=== PATIENT | female | born 1945 | race African-American/Black ===

== ENCOUNTER 2018-09-15 08:38 | Day surgery (SDC) | payer OTHER ==
--- OUTSIDE RECORDS SUMMARY | 2018-09-15 08:43 | XMS REPORT ---
:1945 Author Organization [employer] Care Team Providers Name Role Phone Jesus Hernandez Provider Role Unavailable Allergies, Adverse Reactions, Alerts Substance Reaction Event Type Steroids Info Not Available Drug Allergy Penicllin Info Not Available Drug Allergy Problems Problem Type Condition Code Onset Dates Condition Status Assessment Primary osteoarthritis of right M17.11 Active knee Problem Primary osteoarthritis of right M17.11 Active knee Assessment Pain, joint, knee, right M25.561 Active Medications Medication Code Code Instructions Start End Status Dosage System Date Date Xanax [facility] 55211246100 2 MG Orally Active 1 tablet Twice a day Aggrenox [facility] 18626515830 25-200 MG Active 1 capsule Orally Twice a day Melatonin [facility] 96426641033 5 MG Orally Active 1 tablet Once a day at bedtime as needed with food Metoprolol [facility] 21231432919 50 MG Orally Active as Succinate directed Fluticasone [facility] [address]-45 50 MCG/BLIST Active 1 puff Propionate Inhalation (Inhal) Twice a day ProAir HFA [facility] 94757544413 108 (90 Base) Active 2 puffs as MCG/ACT needed Inhalation every 6 hrs Aripiprazole [facility] 20863166153 2 MG Orally Active 1 tablet Once a day Lexapro [facility] 11753852411 20 MG Orally Active 0.5 tablet Once a day Namzaric [facility] 28559790403 28 mg/10 mg Active 1 Orally daily [place] [facility] 68633987268 7.5-325 MG Active 1 tablet Orally every 6 as needed hrs Losartan ND 50260350457 50 MG Orally Active 1 tablet Potassium Once a day Results No Known Results Summary Purpose [employer]ClinicalWorks Submission
--- OUTSIDE RECORDS SUMMARY | 2018-09-15 08:43 | XMS REPORT ---
:1945 Author Organization [employer] Care Team Providers Name Role Phone Jesus Hernandez Provider Role Unavailable Allergies, Adverse Reactions, Alerts Substance Reaction Event Type Steroids Info Not Available Drug Allergy Penicllin Info Not Available Drug Allergy Problems Problem Type Condition Code Onset Dates Condition Status Assessment Primary osteoarthritis of right knee M17.11 Active Problem Primary osteoarthritis of right knee M17.11 Active Medications Medication Code Code Instructions Start End Status Dosage System Date Date Aripiprazole [facility] 82440222240 2 MG Orally Active 1 tablet Once a day Melatonin ND 47076512409 5 MG Orally Active 1 tablet Once a day at bedtime as needed with food Xanax [facility] 72526425096 2 MG Orally Active 1 tablet Twice a day ProAir HFA [facility] 45236696552 108 (90 Base) Active 2 puffs as MCG/ACT needed Inhalation every [address] [place] [facility] 70204190671 7.5-325 MG Active 1 tablet Orally every 6 as needed hrs Namzaric [facility] 50984150028 28 mg/10 mg Active [address] [facility] 56098340788 25-200 MG Active 1 capsule Orally Twice a day Losartan [facility] 48843276440 50 MG Orally Active 1 tablet Potassium Once a day Fluticasone [facility] [address]-26 50 MCG/BLIST Active 1 puff Propionate Inhalation (Inhal) Twice a day Lexapro [facility] 71836546661 20 MG Orally Active 0.5 tablet Once a day Metoprolol ND 98831143228 50 MG Orally Active as Succinate directed Results No Known Results Summary Purpose eClinicalWorks Submission
--- OUTSIDE RECORDS SUMMARY | 2018-09-15 08:44 | XMS REPORT ---
[...] Start End Status Dosage System Date Date Losartan [facility] 36303637529 50 MG Orally Active 1 tablet Potassium Once a day Xanax [facility] 83732085696 2 MG Orally Active 1 tablet Twice a day Metoprolol [facility] 84148800981 50 MG Orally Active as Succinate directed Aripiprazole [facility] 50789857093 2 MG Orally Active 1 tablet Once a day ProAir HFA [facility] 43537174682 108 (90 Base) Active 2 puffs as MCG/ACT needed Inhalation every 6 hrs Fluticasone [facility] [address]-98 50 MCG/BLIST Active 1 puff Propionate Inhalation (Inhal) Twice a day Namzaric [facility] 10836157320 28 mg/10 mg Active 1 Orally daily Melatonin [facility] 75327427412 5 MG Orally Active 1 tablet Once a day at bedtime as needed with food Lexapro [facility] 62327633393 20 MG Orally Active 0.5 tablet Once a day Ingram [facility] 91411142316 7.5-325 MG Active 1 tablet Orally every 6 as needed hrs Aggrenox [facility] 95095185875 25-200 MG Active 1 capsule Orally Twice a day Results No Known Results Summary Purpose eClinicalWorks Submission
--- OUTSIDE RECORDS SUMMARY | 2018-09-15 08:44 | XMS REPORT ---
[...] Start End Status Dosage System Date Date Fluticasone [facility] [address]-78 50 MCG/BLIST Active 1 puff Propionate Inhalation (Inhal) Twice a day Aggrenox [facility] 52025607686 25-200 MG Active 1 capsule Orally Twice a day Metoprolol [facility] 09471265918 50 MG Orally Active as Succinate directed Losartan [facility] 69164818107 50 MG Orally Active 1 tablet Potassium Once a day Xanax [facility] 89113284535 2 MG Orally Active 1 tablet Twice a day Melatonin ND 29222503737 5 MG Orally Active 1 tablet Once a day at bedtime as needed with food Lexapro [facility] 45013423090 20 MG Orally Active 0.5 tablet Once a day Aripiprazole [facility] 58562176399 2 MG Orally Active 1 tablet Once a day ProAir HFA [facility] 93269179032 108 (90 Base) Active 2 puffs as MCG/ACT needed Inhalation every 6 hrs Namzaric [facility] 46251602301 28 mg/10 mg Active 1 Orally daily [place] [facility] 64413754291 7.5-325 MG Active 1 tablet Orally every 6 as needed hrs Results No Known Results Summary Purpose eClinicalWorks Submission
[2018-09-15 08:56] LABS: Absolute Lymphocytes (CBC) 1.6 K/uL (0.7-4.9); Absolute Monocytes 0.5 K/uL (0.1-1.3); Absolute Neutrophil 5.4 K/uL (1.8-8.0); Basophils % 0.6 % (0-1.3); Eosinophils % 2.4 % (0-4.4); Lymphocytes % 20.4 % (15.3-44.8); MPV 9.8 fL (7.6-11.3); Monocytes % 6.2 % (3.3-12.3); RBC Red Blood Cell Count 4.82 M/uL (3.86-4.86)
[2018-09-15 09:17] LABS: Potassium 4.3 mmol/L (3.5-5.1)
[2018-09-15] MEDS ORDERED: NA CHLORIDE 0.9% 1,000 ML ONE (09:41)
[2018-09-15] MEDS ORDERED: HYDRALAZINE HCL 20 MG/ML VIAL ONE (09:41)
[2018-09-15] MEDS ORDERED: CEFAZOLIN/SWI 1gm 0 GM/0 ML SYR ONE (09:41)
[2018-09-15] MEDS ORDERED: CIPROFLOXACIN 400mg IV 400 MG/200 ML BAG IV ONE (10:15)
[2018-09-15] MEDS ORDERED: PROPOFOL 200 MG/20 ML VIAL IV ONE (10:43)
[2018-09-15] MEDS ORDERED: FENTANYL CITR 100 MCG/2 ML ONE (10:44)
[2018-09-15] MEDS ORDERED: MIDAZOLAM HCL 2 MG/2 ML INJ ONE (10:44)
[2018-09-15] MEDS ORDERED: LIDOCAINE 2% MPF 5 ML VIAL ONE (10:44)
[2018-09-15] MEDS ORDERED: BUPIVACAINE 0.5% PF 10 ML VIAL ONE (10:49)
[2018-09-15] MEDS ORDERED: Mastisol Adhesive Liq ONE (11:19)
[2018-09-15 13:55] VITALS: TEMP 98
[2018-09-15 14:03] VITALS: BP 155/55; O2SAT 99
--- NOTE | 2018-09-15 22:15 | OP ---
Date of Procedure: 09/15/2018 Surgeon: Macho Jones MD Preoperative Diagnosis: Lung cancer. Postoperative Diagnosis: Lung cancer. Procedure: Removal of left chest Port-A-Cath. Estimated Blood Loss: Minimal. Specimen: Port-A-Cath device. Findings: As above. Anesthesia: MAC. Complications: None. Disposition: The patient procedure in stable condition and taken to recovery in good general conditi on. Procedure In Detail: The patient was brought to the OR and placed in supine position. MAC anesthesi a was begun. The patient was prepped and draped in the usual sterile fashion. Marcaine 0.5% was inf iltrated locally. A #15-blade was used to make a 3 cm incision on the left anterior chest. Subcutan eous tissue was divided. The Port-A-Cath was device identified, freed from the surrounding tissue wi th sharp and blunt dissection, and removed and sent to pathology for identification. Wound was irrig ated. Bleeding controlled with cautery. A 3-0 chromic used to reapproximate subcutaneous tissue and close skin. Sterile dressing was applied. The patient was awakened and taken to recovery in good g eneral condition. Discharge Note: The patient will go to Day Surgery, then home when stable. Disposition: Home. Condition: Stable. Discharge Instructions: Resume home medications and diet. Activity as tolerated. No heavy lifting. Remove outer dressing dressing in 2 days. Shower. Keep Steri-Strips on at all times. Follow up i n my office in 2 weeks. Call for appointment. Tylenol No 3 one tablet p.o. q.4 p.r.n. pain. __ /MODL Voice ID: [id number] Report ID: [id number]
== END 2018-09-15 12:57 | disposition home or self-care (01) ==
LOC: OR 08:38
PROVIDERS: ATTEND Surgery
PROC: 0JPT3XZ Removal of Tunneled Vascular Access Device from Trunk Subcutaneous Tissue and Fascia, Percutaneous Approach (ICD-10-PCS; principal; 2018-09-15 11:15)
DX: Z45.2 Encounter for adjustment and management of vascular access device (principal); Z85.118 Personal history of other malignant neoplasm of bronchus and lung; I10 Essential (primary) hypertension; E11.9 Type 2 diabetes mellitus without complications; Z79.84 Long term (current) use of oral hypoglycemic drugs; Z79.899 Other long term (current) drug therapy; Z87.891 Personal history of nicotine dependence
CPT/HCPCS: 36590; 85025; 80048; 36415; 82962; 88300; J0360; J2704; J2250; J3010; J7030; J0744; J0690

== ENCOUNTER 2023-04-12 07:20 | Inpatient (IN) | payer OTHER ==
--- OUTSIDE RECORDS SUMMARY | 2023-04-12 07:23 | XMS REPORT | Continuity of Care Document ---
:1945 Author Organization [facility] t Address [address] [facility] [address] [place] [address] Care Team Providers Name Role Phone Unavailable Unavailable Unavailable Payers Payer Name Policy Type Policy Number Effective Date Expiration Date S sreedhar DIAZ C1 [id number] 2015 Common [employer] 00:00:00 [facility] MEDICARE NOVITAS MB [id number] [facility] MEDICARE NOVITAS MB [id number] [facility] DIAZ C1 [id number] 2015 Common HEALTHCARE 00:00:00 [facility] MEDICARE NOVITAS MB [id number] [facility] DIAZ C1 [id number] 2015 [employer] [facility]CARE 00:00:00 [facility] DIAZ C1 [id number] 2015 [employer] HEALTHCARE 00:00:00 [facility] MEDICARE NOVITAS MB [id number] [facility] Problems Condition Condition Condition Status Onset Resolution Last Treating Co mments Source Name Details Category Date Date Treatment Clinician Date [id number] Arthritis Problem Active Co mmon [id number] of knee, Spirit left [facility] [id number] Primary Problem Active Comm on osteoarthr Spirit itis of - [facility] right [facility] [id number] Other Problem Active Common chronic [facility] pain [facility] [id number] Primary Problem Active Comm on osteoarthr Spirit itis of - [facility] right knee [facility] [id number] Arthritis Problem Active Co mmon [id number] of knee, [facility] right [facility] [id number] Primary Problem Comm on osteoarthr [facility] itis of [facility] right hand [facility] [id number] Primary Problem [facility] hand [facility] Allergies, Adverse Reactions, Alerts Allergy Allergy Status Severity Reaction(s) Onset Inactive Treating Comm ents Source Name Type Date Date Clinician 0 Drug Active Unknown Common allergy [facility] Social History Social Habit Start Date Stop Date Quantity Comments Source History of Tobacco Use Co mmon [facility] Sex Assigned At Com mon [facility] Smoking Status Start Date Stop Date Source Former Smoker 2022-07-16 00:00:00 2022-07-16 00:00:00 Common S [facility] Medications Ordered Filled Start Stop Current Ordering Indication Dosage Frequency Signature Comments Components Source Medication Medication Date Date Medication? Clinician (SIG) Name Name Bupivicaine Bupivicaine 0 No 2.5mg Common [place] Black[place] 10-04 Spirit 00:00: - [facility] Hyalgan 20 Hyalgan 20 0 No 20mg C ommon mg mg 10-04 Spirit 00:00: - [facility] Elvis Leal No 40mg Common (Triamcinol (Triamcinol 5-11 S pirit one) one) 00:00: - [facility] Bupivicaine Bupivicaine 0 No 2.5mg Common [place] Blackstock 10-04 Spirit 00:00: - [facility] Hyalgan 20 Hyalgan 20 0 No 20mg C ommon mg mg 10-04 Spirit 00:00: - [facility] Kenamber Kenalog 0 No 40mg Common (Triamcinol (Triamcinol 5-11 S pirit one) one) 00:00: - [facility] Bupivicaine Bupivicaine 0 No 2.5mg Common [place] Blackstock 5 Spirit 00:00: - [facility] Hyalgan 20 Hyalgan 20 2020-0 No 20mg C ommon mg mg 5- Spirit 00:00: - [facility] Kenalog Kenalog 2020-0 No 40mg Common (Triamcinol (Triamcinol 5-11 S pirit one) one) 00:00: - [facility] Hyalgan 20 Hyalgan 20 2020-0 No 20mg C ommon mg mg 09-26 Spirit 00:00: - [facility] Hyalgan 20 Hyalgan 20 2020-0 No 20mg C ommon mg mg 09-26 Spirit 00:00: - [facility] Hyalgan 20 Hyalgan 20 2020-0 No 20mg C ommon mg mg 09-26 Spirit 00:00: - [facility] Lidocaine Lidocaine 2020-0 No 10mg Com 09-20 Spirit 00:00: - [facility] Hyalgan 20 Hyalgan 20 0 No 20mg C ommon mg mg 09-20 Spirit 00:00: - [facility] Depo-Medrol Depo-Medrol 0 No 40mg Common (Methylpred (Methylpred 4-27 S pirit nisolone) nisolone) 00:00: - C HI 40mg 40mg [facility] Lidocaine Lidocaine 0 No 10mg Com 09-20 Spirit 00:00: - [facility] Hyalgan 20 Hyalgan 20 2020-0 No 20mg C ommon mg mg 09-20 Spirit 00:00: - [facility] Depo-Medrol Depo-Medrol 0 No 40mg Common (Methylpred (Methylpred -27 S pirit nisolone) nisolone) 00:00: - C HI 40mg 40mg 00 [facility] Lidocaine Lidocaine 2020-0 No 10mg Com 09-20 Spirit 00:00: - [facility] Hyalgan 20 Hyalgan 20 2020-0 No 20mg C ommon mg mg 09-20 Spirit 00:00: - [facility] Depo-Medrol Depo-Medrol 2020-0 No 40mg Common (Methylpred (Methylpred -27 S pirit nisolone) nisolone) 00:00: - C HI 40mg 40mg 00 [facility] Hyalgan 20 Hyalgan 20 2020-0 No 20mg C ommon mg mg 8-10 Spirit 00:00: - [facility] 00 [facility] Hyalgan 20 Hyalgan 20 2020-0 No 20mg C ommon mg mg 8 Spirit 00:00: - [facility] Hyalgan 20 Hyalgan 20 2020-0 No 20mg C ommon mg mg 8 Spirit 00:00: - [facility] Hyalgan 20 Hyalgan 20 2020-0 No 2mL C ommon mg mg 12-20 Spirit 00:00: - [facility] 00 [facility] Hyalgan 20 Hyalgan 20 2020-0 No 2mL C ommon mg mg 12-20 Spirit 00:00: - [facility] Hyalgan 20 Hyalgan 20 2020-0 No 2mL C ommon mg mg 12-20 Spirit 00:00: - [facility] Hyalgan 20 Hyalgan 20 2020-0 No 2mL C ommon mg mg 12-13 Spirit 00:00: - [facility] 00 [facility] Kenalog Kenalog 2020-0 No 40mg Common (Triamcinol (Triamcinol 7-20 S pirit one) one) 00:00: - [facility] 00 [facility] Bupivicaine Bupivicaine 2020-0 No 4mL Common [place] Blackstock 7-20 Spirit 00:00: - [facility] Hyalgan 20 Hyalgan 20 2020-0 No 2mL C ommon mg mg 7-20 Spirit 00:00: - [facility] 00 [facility] Kenalog Kenalog 2020-0 No 40mg Common (Triamcinol (Triamcinol 7-20 S pirit one) one) 00:00: - [facility] 00 [facility] Bupivicaine Bupivicaine 2020-0 No 4mL Common [place] Blackstock 7-20 Spirit 00:00: - [facility] 00 [facility] Hyalgan 20 Hyalgan 20 2020-0 No 2mL C ommon mg mg 7-20 Spirit 00:00: - [facility] 00 [facility] Kenalog Kenalog 2020-0 No 40mg Common (Triamcinol (Triamcinol 7-20 S pirit one) one) 00:00: - [facility] 00 [facility] Bupivicaine Bupivicaine 2020-0 No 4mL Common [place] Blackstock 7-20 Spirit 00:00: - [facility] 00 [facility] Bupivicaine Bupivicaine 2020-0 No 4mL Common [place] Blackstock 3-16 Spirit 00:00: - [facility] 00 [facility] Kenalog Kenalog 2020-0 No 40mg Common (Triamcinol (Triamcinol 3-16 S pirit one) one) 00:00: - [facility] 00 [facility] Bupivicaine Bupivicaine 2020-0 No 4mL Common [place] Blackstock 3-16 Spirit 00:00: - [facility] 00 [facility] Kenalog Kenalog 2020-0 No 40mg Common (Triamcinol (Triamcinol 3-16 S pirit one) one) 00:00: - [facility] 00 [facility] Bupivicaine Bupivicaine 2020-0 No 4mL Common [place] Blackstock 3-16 Spirit 00:00: - [facility] 00 [facility] Kenalog Kenalog 2020-0 No 40mg Common (Triamcinol (Triamcinol 3-16 S pirit one) one) 00:00: - [facility] 00 [facility] Hyalgan 20 Hyalgan 20 2018- No 20mg C ommon mg mg 1-25 Spirit 00:00: - [facility] 00 [facility] Hyalgan 20 Hyalgan 20 2018- No 20mg C ommon mg mg 1-25 Spirit 00:00: - [facility] 00 [facility] Hyalgan 20 Hyalgan 20 2018- No 20mg C ommon mg mg 1-25 Spirit 00:00: - [facility] 00 [facility] Hyalgan 20 Hyalgan 20 2018- No 20mg C ommon mg mg 1-18 Spirit 00:00: - [facility] 00 [facility] Hyalgan 20 Hyalgan 20 2018- No 20mg C ommon mg mg 1-18 Spirit 00:00: - [facility] 00 [facility] Hyalgan 20 Hyalgan 20 2018- No 20mg C ommon mg mg 1-18 Spirit 00:00: - [facility] Kenalog Kenalog 2019- No 1mL Common (Triamcinol (Triamcinol 1-04 S pirit one) one) 00:00: - [facility] 00 [facility] Hyalgan 20 Hyalgan 20 2019-1 No 20mg C ommon mg mg 1-04 Spirit 00:00: - [facility] LIDOCAINE LIDOCAINE 2019-1 No 4mL Com mon HCL 10MG/ML HCL 10MG/ML 1-04 S pirit 00:00: - [facility] Kenalog Kenalog 2019-1 No 1mL Common (Triamcinol (Triamcinol 1-04 S pirit one) one) 00:00: - [facility] 00 [facility] Hyalgan 20 Hyalgan 20 2018-1 No 20mg C ommon mg mg 1-04 Spirit 00:00: - [facility] LIDOCAINE LIDOCAINE 2019-1 No 4mL Com mon HCL 10MG/ML HCL 10MG/ML 1-04 S pirit 00:00: - [facility] 00 [facility] Kenalog Kenalog 2019-1 No 1mL Common (Triamcinol (Triamcinol 1-04 S pirit one) one) 00:00: - [facility] Hyalgan 20 Hyalgan 20 2019-1 No 20mg C ommon mg mg 1-04 [facility] 00:00: - [facility] 00 [facility] LIDOCAINE LIDOCAINE 2019-1 No 4mL Com mon HCL 10MG/ML HCL 10MG/ML 1-04 S pirit 00:00: - [facility] 00 [facility] Kenalog Kenalog 2019-0 No 1mL Common (Triamcinol (Triamcinol 7-30 S pirit one) one) 00:00: - [facility] LIDOCAINE LIDOCAINE 2019-0 No 4mL Com mon HCL 10MG/ML HCL 10MG/ML 7-30 S pirit 00:00: - [facility] Kenalog Kenalog 2019-0 No 1mL Common (Triamcinol (Triamcinol 7-30 S pirit one) one) 00:00: - [facility] 00 [facility] LIDOCAINE LIDOCAINE 2019-0 No 4mL Com mon HCL 10MG/ML HCL 10MG/ML 7-30 S pirit 00:00: - [facility] Kenalog Kenalog 2019-0 No 1mL Common (Triamcinol (Triamcinol 7-30 S pirit one) one) 00:00: - [facility] LIDOCAINE LIDOCAINE 2019-0 No 4mL Com mon HCL 10MG/ML HCL 10MG/ML 7-30 S pirit 00:00: - [facility] Hyalgan 20 Hyalgan 20 2019-0 No 20mg C ommon mg mg 3- Spirit 00:00: - [facility] Hyalgan 20 Hyalgan 20 2019-0 No 20mg C ommon mg mg 3- Spirit 00:00: - [facility] Hyalgan 20 Hyalgan 20 2019-0 No 20mg C ommon mg mg 3- Spirit 00:00: - [facility] Hyalgan 20 Hyalgan 20 2019-0 No 20mg C ommon mg mg 3- [facility] 00:00: - [facility] Hyalgan 20 Hyalgan 20 2019-0 No 20mg C ommon mg mg 3- Spirit 00:00: - [facility] Hyalgan 20 Hyalgan 20 2019-0 No 20mg C ommon mg mg 3- Spirit 00:00: - [facility] Hyalgan 20 Hyalgan 20 2019-0 No 20mg C ommon mg mg 2-25 [facility] 00:00: - [facility] Hyalgan 20 Hyalgan 20 2019-0 No 20mg C ommon mg mg 2-25 [facility] 00:00: - [facility] Hyalgan 20 Hyalgan 20 2019-0 No 20mg C ommon mg mg 2-25 [facility] 00:00: - [facility] LIDOCAINE LIDOCAINE 2019-0 No 10mg Com mon HCL 10MG/ML HCL 10MG/ML 2-05 S pirit 00:00: - [facility] Depo Medrol Depo Medrol 2019-0 No 40mg Common (40mg) (40mg) 2-05 Spirit 00:00: - [facility] LIDOCAINE LIDOCAINE 2019-0 No 10mg Com mon HCL 10MG/ML HCL 10MG/ML 2-05 S pirit 00:00: - [facility] Depo Medrol Depo Medrol 2019-0 No 40mg Common (40mg) (40mg) 2-05 Spirit 00:00: - [facility] LIDOCAINE LIDOCAINE 2019-0 No 10mg Com mon HCL 10MG/ML HCL 10MG/ML 2-05 S pirit 00:00: - [facility] Depo Medrol Depo Medrol No 40mg Common (40mg) (40mg) 2-05 Spirit 00:00: - [facility] Betamethaso Betamethaso 2017-05 No 1mL Common ne Sodium ne Sodium 0-22 Spiri t Phosphate Phosphate 00:00: - C HI [facility] LIDOCAINE LIDOCAINE 2017-05 No 10mg Com mon HCL 10MG/ML HCL 10MG/ML 0-22 S pirit 00:00: - [facility] No 1mL Common ne Sodium ne Sodium 0-22 Spiri t Phosphate Phosphate 00:00: - C HI [facility] LIDOCAINE LIDOCAINE 2017-05 No 10mg Com mon HCL 10MG/ML HCL 10MG/ML 0-22 S pirit 00:00: - [facility] No 1mL Common ne Sodium ne Sodium 0-22 Spiri t Phosphate Phosphate 00:00: - C HI [facility] LIDOCAINE LIDOCAINE 2017-05 No 10mg Com mon HCL 10MG/ML HCL 10MG/ML 0-22 S pirit 00:00: - [facility] Xanax Xanax Yes Jesus 1 tablet Common Hernandez [facility] Aggrenox Aggrenox Yes Jesus 1 capsule Common Hernandez [facility] Melatonin Melatonin Yes Jesus 1 tablet Common Hernandez at bedtime Spirit as needed - [facility] with food [facility] Metoprolol Metoprolol Yes Jesus as Common Succinate Succinate Hernandez directed S pirit [facility] Fluticasone Fluticasone Yes Jesus 1 puff Common Propionate Propionate Hernandez Spi rit (Inhal) (Inhal) [facility] ProAir HFA ProAir HFA Yes Jesus 2 puffs as Common Hernandez needed [facility] Aripiprazol Aripiprazol Yes Jesus 1 tablet Common e e Hernandez [facility] Lexapro Lexapro Yes Jesus 0.[address] [facility] Alyssa Yes Jesus 1 Comm on Hernandez [facility] [place] Jesus 1 tablet Common Hernandez as needed [facility] Losartan Losartan Yes Jesus 1 tablet Common Potassium Potassium Hernandez Spiri t [facility] Escitalopra Escitalopra Yes Jesus not Common m Oxalate m Oxalate Hernandez defined Sp eunice [facility] Aspirin-Dip Aspirin-Dip Yes Jesus not Common yridamole yridamole Hernandez defined Sp eunice ER ER [facility] Omeprazole Omeprazole Yes Jesus not Common Hernandez defined [facility] Alprazolam Alprazolam Yes Jesus (Schedule Common Hernandez IV Drug) Spirit TAKE 1 - CHI TABLET BY [facility] 3 [facility] TIMES A Medical DAY Center Hydrocodone Hydrocodone Yes Jesus (Schedule Common -Acetaminop -Acetaminop Hernandez II Drug) Spirit hen hen TAKE 1 - CHI TABLET [facility] Medical DAILY Center Metoprolol Metoprolol Yes Jesus not Common Succinate Succinate Hernandez defined Sp eunice ER ER [facility] Fluticasone Fluticasone Yes Jesus not Common Propionate Propionate Hernandez defined [facility] Yes Jesus not Comm on Hernandez defined [facility] Furosemide Furosemide Yes Jesus not Common Hernandez defined [facility] Hydrocodone Hydrocodone No Hydrocodon -Acetaminop -Acetaminop e-Acetamin hen 7.5-325 hen 7.5-325 ophen MG MG 7.5-325 MG ProAir HFA ProAir HFA No 2{puffs QID ProAir HFA 108 (90 108 (90 _as_nee 108 (90 Base) Base) ded} Base) MCG/ACT MCG/ACT MCG/ACT Alprazolam Alprazolam No Alprazolam 1 MG 1 MG 1 MG Metoprolol Metoprolol No Metoprolol Succinate Succinate Succinate ER ER ER Fluticasone Fluticasone No 1{puff} BID Fluticason Propionate Propionate e (Inhal) 50 (Inhal) 50 Propionate MCG/BLIST MCG/BLIST (Inhal) 50 MCG/BLIST Aspirin-Dip Aspirin-Dip No Aspirin-Di yridamole yridamole pyridamole ER ER ER Losartan Losartan No 1{table QD Losartan Potassium Potassium t} Potassium 50 MG 50 MG 50 MG Melatonin 5 Melatonin 5 No 1{table QD Melatonin MG MG t_at_be 5 MG dtime_a s_neede d_with_ food} Aggrenox Aggrenox No 1{capsu BID Aggrenox 25-200 MG 25-200 MG le} 25-200 MG Omeprazole Omeprazole No Omeprazole Namzaric Namzaric No Namzaric Lexapro 20 Lexapro 20 No .5{tabl QD Lexapro 20 MG MG et} MG Xanax 2 MG Xanax 2 MG No 1{table BID Xanax 2 MG t} Metoprolol Metoprolol No Metoprolol Succinate Succinate Succinate 50 MG 50 MG 50 MG Aripiprazol Aripiprazol No 1{table QD Aripiprazo e 2 MG e 2 MG t} le 2 MG Namzaric 28 Namzaric 28 No QD Namzaric mg/10 mg mg/10 mg 28 mg/10 mg Furosemide Furosemide No Furosemide [place] No 1{table QID [place] 7.5-325 MG 7.5-325 MG t_as_ne 7.5-325 MG eded} Escitalopra Escitalopra No Escitalopr m Oxalate m Oxalate am Oxalate Fluticasone Fluticasone No Fluticason Propionate Propionate e Propionate Metoprolol Metoprolol No Metoprolol Succinate Succinate Succinate 50 MG 50 MG 50 MG Namzaric 28 Namzaric 28 No QD Namzaric mg/10 mg mg/10 mg 28 mg/10 mg Aripiprazol Aripiprazol No 1{table QD Aripiprazo e 2 MG e 2 MG t} le 2 MG Aspirin-Dip Aspirin-Dip No Aspirin-Di yridamole yridamole pyridamole ER ER ER Fluticasone Fluticasone No Fluticason Propionate Propionate e Propionate Hydrocodone Hydrocodone No Hydrocodon -Acetaminop -Acetaminop e-Acetamin hen 7.5-325 hen 7.5-325 ophen MG MG 7.5-325 MG Metoprolol Metoprolol No Metoprolol Succinate Succinate Succinate ER ER ER Furosemide Furosemide No Furosemide ProAir HFA ProAir HFA No 2{puffs QID ProAir HFA 108 (90 108 (90 _as_nee 108 (90 Base) Base) ded} Base) MCG/ACT MCG/ACT MCG/ACT Losartan Losartan No 1{table QD Losartan Potassium Potassium t} Potassium 50 MG 50 MG 50 MG Escitalopra Escitalopra No Escitalopr m Oxalate m Oxalate am Oxalate Xanax 2 MG Xanax 2 MG No 1{table BID Xanax 2 MG t} Fluticasone Fluticasone No 1{puff} BID Fluticason Propionate Propionate e (Inhal) 50 (Inhal) 50 Propionate MCG/BLIST MCG/BLIST (Inhal) 50 MCG/BLIST Omeprazole Omeprazole No Omeprazole Aggrenox Aggrenox No 1{capsu BID Aggrenox 25-200 MG 25-200 MG le} 25-200 MG [place] No 1{table QID [place] 7.5-325 MG 7.5-325 MG t_as_ne 7.5-325 MG eded} Namzaric Namzaric No Namzaric Lexapro 20 Lexapro 20 No .5{tabl QD Lexapro 20 MG MG et} MG Alprazolam Alprazolam No Alprazolam 1 MG 1 MG 1 MG Melatonin 5 Melatonin 5 No 1{table QD Melatonin MG MG t_at_be 5 MG dtime_a s_neede d_with_ food} Xanax 2 MG Xanax 2 MG No 1{table BID Xanax 2 MG t} ProAir HFA ProAir HFA No 2{puffs QID ProAir HFA 108 (90 108 (90 _as_nee 108 (90 Base) Base) ded} Base) MCG/ACT MCG/ACT MCG/ACT Losartan Losartan No 1{table QD Losartan Potassium Potassium t} Potassium 50 MG 50 MG 50 MG Omeprazole Omeprazole No Omeprazole Lexapro 20 Lexapro 20 No .5{tabl QD Lexapro 20 MG MG et} MG Ferrous Ferrous No Ferrous Gluconate Gluconate Gluconate ARIPiprazol ARIPiprazol No 1{table QD ARIPiprazo e 2 MG e 2 MG t} le 2 MG Furosemide Furosemide No Furosemide Aggrenox Aggrenox No 1{capsu BID Aggrenox 25-200 MG 25-200 MG le} 25-200 MG Aspirin-Dip Aspirin-Dip No Aspirin-Di yridamole yridamole pyridamole ER ER ER Escitalopra Escitalopra No Escitalopr m Oxalate m Oxalate am Oxalate HYDROcodone HYDROcodone No HYDROcodon -Acetaminop -Acetaminop e-Acetamin hen 7.5-325 hen 7.5-325 ophen MG MG 7.5-325 MG Fluticasone Fluticasone No 1{puff} BID Fluticason Propionate Propionate e (Inhal) 50 (Inhal) 50 Propionate MCG/BLIST MCG/BLIST (Inhal) 50 MCG/BLIST Metoprolol Metoprolol No Metoprolol Succinate Succinate Succinate ER ER ER Melatonin 5 Melatonin 5 No 1{table QD Melatonin MG MG t_at_be 5 MG dtime_a s_neede d_with_ food} ALPRAZolam ALPRAZolam No ALPRAZolam 1 MG 1 MG 1 MG Namzaric Namzaric No Namzaric Metoprolol Metoprolol No Metoprolol Succinate Succinate Succinate 50 MG 50 MG 50 MG Fluticasone Fluticasone No Fluticason Propionate Propionate e Propionate Namzaric 28 Namzaric 28 No QD Namzaric mg/10 mg mg/10 mg 28 mg/10 mg [place] No 1{table QID [place] 7.5-325 MG 7.5-325 MG t_as_ne 7.5-325 MG eded} Metoprolol Metoprolol No Metoprolol Succinate Succinate Succinate 50 MG 50 MG 50 MG Metoprolol Metoprolol No Metoprolol Succinate Succinate Succinate ER ER ER Namzaric 28 Namzaric 28 No QD Namzaric mg/10 mg mg/10 mg 28 mg/10 mg Xanax 2 MG Xanax 2 MG No 1{table BID Xanax 2 MG t} ProAir HFA ProAir HFA No 2{puffs QID ProAir HFA 108 (90 108 (90 _as_nee 108 (90 Base) Base) ded} Base) MCG/ACT MCG/ACT MCG/ACT Losartan Losartan No 1{table QD Losartan Potassium Potassium t} Potassium 50 MG 50 MG 50 MG Omeprazole Omeprazole No Omeprazole Lexapro 20 Lexapro 20 No .5{tabl QD Lexapro 20 MG MG et} MG Ferrous Ferrous No Ferrous Gluconate Gluconate Gluconate ARIPiprazol ARIPiprazol No 1{table QD ARIPiprazo e 2 MG e 2 MG t} le 2 MG Furosemide Furosemide No Furosemide Aggrenox Aggrenox No 1{capsu BID Aggrenox 25-200 MG 25-200 MG le} 25-200 MG Hydrocodone Hydrocodone No Hydrocodon -Acetaminop -Acetaminop e-Acetamin hen 7.5-325 hen 7.5-325 ophen MG MG 7.5-325 MG Aspirin-Dip Aspirin-Dip No Aspirin-Di yridamole yridamole pyridamole ER ER ER Escitalopra Escitalopra No Escitalopr m Oxalate m Oxalate am Oxalate HYDROcodone HYDROcodone No HYDROcodon -Acetaminop -Acetaminop e-Acetamin hen 7.5-325 hen 7.5-325 ophen MG MG 7.5-325 MG Fluticasone Fluticasone No 1{puff} BID Fluticason Propionate Propionate e (Inhal) 50 (Inhal) 50 Propionate MCG/BLIST MCG/BLIST (Inhal) 50 MCG/BLIST Metoprolol Metoprolol No Metoprolol Succinate Succinate Succinate ER ER ER Melatonin 5 Melatonin 5 No 1{table QD Melatonin MG MG t_at_be 5 MG dtime_a s_neede d_with_ food} ALPRAZolam ALPRAZolam No ALPRAZolam 1 MG 1 MG 1 MG Namzaric Namzaric No Namzaric Metoprolol Metoprolol No Metoprolol Succinate Succinate Succinate 50 MG 50 MG 50 MG Fluticasone Fluticasone No Fluticason Propionate Propionate e Propionate Fluticasone Fluticasone No Fluticason Propionate Propionate e Propionate Namzaric 28 Namzaric 28 No QD Namzaric mg/10 mg mg/10 mg 28 mg/10 mg [place] No 1{table QID [place] 7.5-325 MG 7.5-325 MG t_as_ne 7.5-325 MG eded} Aspirin-Dip Aspirin-Dip No Aspirin-Di yridamole yridamole pyridamole ER ER ER Melatonin 5 Melatonin 5 No 1{table QD Melatonin MG MG t_at_be 5 MG dtime_a s_neede d_with_ food} Escitalopra Escitalopra No Escitalopr m Oxalate m Oxalate am Oxalate Xanax 2 MG Xanax 2 MG No 1{table BID Xanax 2 MG t} ProAir HFA ProAir HFA No 2{puffs QID ProAir HFA 108 (90 108 (90 _as_nee 108 (90 Base) Base) ded} Base) MCG/ACT MCG/ACT MCG/ACT Aggrenox Aggrenox No 1{capsu BID Aggrenox 25-200 MG 25-200 MG le} 25-200 MG Losartan Losartan No 1{table QD Losartan Potassium Potassium t} Potassium 50 MG 50 MG 50 MG Omeprazole Omeprazole No Omeprazole Lexapro 20 Lexapro 20 No .5{tabl QD Lexapro 20 MG MG et} MG Ferrous Ferrous No Ferrous Gluconate Gluconate Gluconate ARIPiprazol ARIPiprazol No 1{table QD ARIPiprazo e 2 MG e 2 MG t} le 2 MG Furosemide Furosemide No Furosemide Aggrenox Aggrenox No 1{capsu BID Aggrenox 25-200 MG 25-200 MG le} 25-200 MG Aspirin-Dip Aspirin-Dip No Aspirin-Di yridamole yridamole pyridamole ER ER ER Escitalopra Escitalopra No Escitalopr m Oxalate m Oxalate am Oxalate HYDROcodone HYDROcodone No HYDROcodon -Acetaminop -Acetaminop e-Acetamin hen 7.5-325 hen 7.5-325 ophen MG MG 7.5-325 MG Xanax 2 MG Xanax 2 MG No 1{table BID Xanax 2 MG t} Fluticasone Fluticasone No 1{puff} BID Fluticason Propionate Propionate e (Inhal) 50 (Inhal) 50 Propionate MCG/BLIST MCG/BLIST (Inhal) 50 MCG/BLIST Metoprolol Metoprolol No Metoprolol Succinate Succinate Succinate ER ER ER Melatonin 5 Melatonin 5 No 1{table QD Melatonin MG MG t_at_be 5 MG dtime_a s_neede d_with_ food} ALPRAZolam ALPRAZolam No ALPRAZolam 1 MG 1 MG 1 MG Namzaric Namzaric No Namzaric Metoprolol Metoprolol No Metoprolol Succinate Succinate Succinate 50 MG 50 MG 50 MG Fluticasone Fluticasone No Fluticason Propionate Propionate e Propionate Namzaric 28 Namzaric 28 No QD Namzaric mg/10 mg mg/10 mg 28 mg/10 mg [place] No 1{table QID [place] 7.5-325 MG 7.5-325 MG t_as_ne 7.5-325 MG eded} Furosemide Furosemide No Furosemide Losartan Losartan No 1{table QD Losartan Potassium Potassium t} Potassium 50 MG 50 MG 50 MG Fluticasone Fluticasone No 1{puff} BID Fluticason Propionate Propionate e (Inhal) 50 (Inhal) 50 Propionate MCG/BLIST MCG/BLIST (Inhal) 50 MCG/BLIST Namzaric Namzaric No Namzaric ProAir HFA ProAir HFA No 2{puffs QID ProAir HFA 108 (90 108 (90 _as_nee 108 (90 Base) Base) ded} Base) MCG/ACT MCG/ACT MCG/ACT Lexapro 20 Lexapro 20 No .5{tabl QD Lexapro 20 MG MG et} MG [place] No 1{table QID [place] 7.5-325 MG 7.5-325 MG t_as_ne 7.5-325 MG eded} Omeprazole Omeprazole No Omeprazole Alprazolam Alprazolam No Alprazolam 1 MG 1 MG 1 MG Aripiprazol Aripiprazol No 1{table QD Aripiprazo e 2 MG e 2 MG t} le 2 MG Hydrocodone Hydrocodone No Hydrocodon -Acetaminop -Acetaminop e-Acetamin hen 7.5-325 hen 7.5-325 ophen MG MG 7.5-325 MG ProAir HFA ProAir HFA No 2{puffs QID ProAir HFA 108 (90 108 (90 _as_nee 108 (90 Base) Base) ded} Base) MCG/ACT MCG/ACT MCG/ACT Alprazolam Alprazolam No Alprazolam 1 MG 1 MG 1 MG Metoprolol Metoprolol No Metoprolol Succinate Succinate Succinate ER ER ER Fluticasone Fluticasone No 1{puff} BID Fluticason Propionate Propionate e (Inhal) 50 (Inhal) 50 Propionate MCG/BLIST MCG/BLIST (Inhal) 50 MCG/BLIST Aspirin-Dip Aspirin-Dip No Aspirin-Di yridamole yridamole pyridamole ER ER ER Losartan Losartan No 1{table QD Losartan Potassium Potassium t} Potassium 50 MG 50 MG 50 MG Melatonin 5 Melatonin 5 No 1{table QD Melatonin MG MG t_at_be 5 MG dtime_a s_neede d_with_ food} Aggrenox Aggrenox No 1{capsu BID Aggrenox 25-200 MG 25-200 MG le} 25-200 MG Omeprazole Omeprazole No Omeprazole Namzaric Namzaric No Namzaric Lexapro 20 Lexapro 20 No .5{tabl QD Lexapro 20 MG MG et} MG Xanax 2 MG Xanax 2 MG No 1{table BID Xanax 2 MG t} Metoprolol Metoprolol No Metoprolol Succinate Succinate Succinate 50 MG 50 MG 50 MG Aripiprazol Aripiprazol No 1{table QD Aripiprazo e 2 MG e 2 MG t} le 2 MG Namzaric 28 Namzaric 28 No QD Namzaric mg/10 mg mg/10 mg 28 mg/10 mg Furosemide Furosemide No Furosemide [place] No 1{table QID [place] 7.5-325 MG 7.5-325 MG t_as_ne 7.5-325 MG eded} Escitalopra Escitalopra No Escitalopr m Oxalate m Oxalate am Oxalate Fluticasone Fluticasone No Fluticason Propionate Propionate e Propionate Vital Signs Vital Name Observation Time Observation Value Comments Source height 2022-07-12 09:30:00 66 [in_i] [facility] weight 2022-07-12 09:30:00 170 [lb_av] [facility] temperature 2022-07-12 09:30:00 98.1 [degF] [facility] bmi 2022-07-12 09:30:00 27.44 kg/m2 [facility] blood pressure 2022-07-12 09:30:00 112 mm[Hg] [facility] blood pressure 2022-07-12 09:30:00 74 mm[Hg] [facility] height 2020-10-04 10:15:00 66 [in_i] [facility] weight 2020-10-04 10:15:00 194 [lb_av] [facility] temperature 2020-10-04 10:15:00 97.8 [degF] [facility] bmi 2020-10-04 10:15:00 31.31 kg/m2 [facility] pressure 2020-10-04 10:15:00 95 mm[Hg] [facility] blood pressure 2020-10-04 10:15:00 51 mm[Hg] [facility] height 2020-09-26 10:15:00 66 [in_i] [facility] weight 2020-09-26 10:15:00 194 [lb_av] [facility] bmi 2020-09-26 10:15:00 31.31 kg/m2 [facility] blood pressure 2020-09-26 10:15:00 112 mm[Hg] [facility] blood pressure 2020-09-26 10:15:00 68 mm[Hg] [facility] height 2020-09-20 10:45:00 66 [in_i] [facility] weight 2020-09-20 10:45:00 194 [lb_av] [facility] temperature 2020-09-20 10:45:00 97.5 [degF] [facility] bmi 2020-09-20 10:45:00 31.31 kg/m2 [facility] blood pressure 2020-09-20 10:45:00 114 mm[Hg] [facility] blood pressure 2020-09-20 10:45:00 74 mm[Hg] [facility] Procedures This patient has no known procedures. Encounters Start End Encounter Admission Attending Care Care Encounter Source Date/Time Date/Time Type Type Clinicians Facility Department ID 2022-08-06 Outpatient [facility] [id number] Common 14:47:00 [id number] [facility] 2022-07-12 Outpatient [facility] [id number] Common 09:32:02 [id number] [facility] 2022-06-26 Outpatient [facility] [id number] Common 11:33:00 [id number] [facility] 2021-06-21 Outpatient [facility] ST[facility] [id number] Common 14:36:49 [id number] [facility] 2021-06-21 Outpatient [facility] ST[facility] [id number] Common 12:58:36 [id number] [facility] 2021-06-21 Outpatient [facility] ST[facility] [id number] Common 12:57:13 [id number] [facility] 2021-06-21 Outpatient [facility] STL[facility] [id number] Common 12:56:51 [id number] [facility] 2021-06-21 Outpatient [facility] ST[facility] [id number] Common 12:55:52 [id number] [facility] 2021-06-21 Outpatient [facility] ST[facility] [id number] Common 12:49:38 [id number] [facility] 2021-06-21 Outpatient [facility] ST[facility] [id number] Common 11:35:32 [id number] [facility] 2022-08-06 2022-08-06 (TEL) STLMLC ST[facility] [id number] [facility] 00:00:00 00:00:00 [facility] 2022-07-13 2022-07-13 (TEL) STLMLC ST[facility]C [id number] [facility] 00:00:00 00:00:00 [facility] 2022-07-12 2022-07-12 OFFICE STLMLC ST[facility]C [id number] [facility] m[facility] 00:00:00 00:00:00 VISIT [facility] 4 [facility] 2020-10-04 2020-10-04 (IN/ASP) STLMLC STLMLC [id number] C ommon 00:00:00 00:00:00 INJ [facility] 2020-09-26 2020-09-26 [id number] 00:00:00 00:00:00 [facility] 2020-09-26 2020-09-26 (IN/ASP) STLMLC STLMLC [id number] C ommon 00:00:00 00:00:00 INJ [facility] 2020-09-20 2020-09-20 [facility] [id number] Co m[facility] 00:00:00 00:00:00 V[facility]IT [facility] - [facility] LEVEL 4 [facility] 2020-01-04 2020-01-04 [id number] Common 08:00:00 08:00:00 [facility] 2019-12-24 2019-12-24 [id number] Common 11:13:00 11:13:00 t [facility] 2019-12-21 2019-12-21 [id number] Common 08:00:00 08:00:00 t [facility] 2019-12-14 2019-12-14 [facility] [id number] Common 08:30:00 08:30:00 t [facility] 2019-08-10 2019-08-10 [facility] [id number] Common 09:30:00 09:30:00 t [facility] 2019-04-20 2019-04-20 [facility] [id number] Common 11:00:00 11:00:00 t [facility] 2019-04-13 2019-04-13 [facility] [id number] Common 10:30:00 10:30:00 t [facility] 2019-03-30 2019-03-30 [facility] [id number] Common 13:30:00 13:30:00 t [facility] 2018-12-23 2018-12-23 [facility] [id number] Common 10:00:00 10:00:00 t [facility] 2018-08-14 2018-08-14 [facility] [id number] Common 10:30:00 10:30:00 t [facility] 2018-07-28 2018-07-28 [facility] [id number] Common 10:30:00 10:30:00 t [facility] 2018-07-21 2018-07-21 [facility] [id number] Common 11:00:00 11:00:00 t [facility] 2018-07-01 2018-07-01 [facility] [id number] Common 10:30:00 10:30:00 t [facility] Sp[facility] Results This patient has no known results.
--- NOTE | 2023-04-12 07:56 | RAD REPORT ---
EXAM DESCRIPTION: Gene Single View04/12/2023 7:43 am CLINICAL HISTORY: Shortness of breath COMPARISON: 2016 FINDINGS: Mild left and moderate right pulmonary opacities Heart is enlarged IMPRESSION: Bilateral pulmonary opacities right greater than left could represent pulmonary or pneum onia
[2023-04-12 08:30] LABS: Specific Gravity 1.011 (1.005-1.030); Urine Bacteria >50 /HPF (<20); Urine Bilirubin NEGATIVE (Negative); Urine Blood 2+ (Negative); Urine Clarity Extremely Turbid (Clear); Urine Color Light-Yellow (Yellow); Urine Glucose NEGATIVE (Negative); Urine Protein TRACE (Negative); Urine RBC >50 /HPF (None Seen); Urine Urobilinogen Normal (Normal); Urine WBC Clump Occasional /HPF (None Seen); Urine pH 7.5 (5.0-7.0)
[2023-04-12 08:37] LABS: SARS-CoV-2 Antigen Rapid Res Positive (Negative)
--- NOTE | 2023-04-12 08:54 | ER ---
Nurse's Notes [facility] Name: Claudia Juarez Age: 77 yrs Sex: Female : 1945 Arrival Date: 04/12/2023 Time: 07:20 Bed 3 Private MD: Diagnosis: Acute pulmonary edema;COPD/ Chronic obstructive pulmonary disease, unspecified;SARS-associated coronavirus as the cause of diseases classified elsewhere;UTI/ Urinary tract infection, site not specified Presentation: 04/12 07:38 Chief complaint: EMS states: EMS called for difficulty breathing, pt found minimally ph responsive w/ room air Spo2 35%, placed on NRB mask improved to 94%, hypertensive, HR 130s, hx of COPD and CHF. Coronavirus screen: Vaccine status: Patient reports receiving the 2nd dose of the covid vaccine. Ebola Screen: No symptoms or risks identified at this time. Initial Sepsis Screen: Does the patient meet any 2 criteria? RR > 20 per min. HR > 90 bpm. Does the patient have a suspected source of infection? Yes: Productive cough/pneumonia Dysuria/Frequency/Urgency/UTI. Risk Assessment: Do you want to hurt yourself or someone else? Patient reports no desire to harm self or others. Onset of symptoms was April 12, 2023. 07:38 Method Of Arrival: EMS: [facility] ph 07:38 Acuity: MARIUSZ 1 ph Triage Assessment: 07:43 General: Appears distressed, uncomfortable, Behavior is cooperative, appropriate for ph age. Pain: Complains of pain in right arm, left arm, right leg and left leg. Neuro: Level of Consciousness is awake, obeys commands, lethargic, Oriented to person, place, situation. Cardiovascular: Reports shortness of breath. Respiratory: Reports shortness of breath at rest labored breathing Airway is patent Respiratory effort is labored, gasping, Respiratory pattern is tachypnea Breath sounds with crackles bilaterally. Onset: The symptoms/episode began/occurred last night, the patient has severe shortness of breath. GI: No signs and/or symptoms were reported involving the gastrointestinal system. : pt smells strongly of urine, brief and gown saturated Reports incontinence. Derm: Skin is fragile, is thin, Skin is pink, warm \T\ dry. Historical: - Allergies: 07:42 PENICILLINS; ph 07:42 Aspirin; ph 07:42 Prednisone; ph 07:42 pentazocine lactate; ph - Home Meds: 08:34 aspirin-dipyridamole 25-200 mg Oral Capsule, ER Multiphase 12 hr [Active]; omeprazole ph 40 mg Oral capsule,delayed release (e.c.) daily [Active]; aripiprazole 5 mg oral tablet every day at bedtime [Active]; furosemide 20 mg oral tablet 1 tablet 2 times per week [Active]; ferrous gluconate 324 mg (37.5 mg iron) Oral tablet daily [Active]; losartan 50 mg oral tablet 1 tab daily [Active]; meloxicam 15 mg oral tablet daily [Active]; hydrocodone-acetaminophen 7.5-325 mg Oral tablet 1 tab 2 to 3 times per day PRN [Active]; metoprolol succinate 50 mg oral Tablet, Extended Release 24 hr 1 tab daily [Active]; alprazolam 0.25 mg Oral tablet 1 tab 3 times per day [Active]; escitalopram oxalate 20 mg oral tablet 1 tab daily [Active]; albuterol sulfate 90 mcg/actuation Inhl HFA Aerosol Inhaler 2 inhalations every 6 hours [Active]; - PMHx: 07:42 Congestive heart failure; Chronic obstructive lung disease; Hypertensive disorder; ph - Immunization history:: Adult Immunizations unknown. - Family history:: not pertinent. - Social history:: Smoking status: unknown. - Hospitalizations: : No recent hospitalization is reported. Screenin:48 [facility] ED Fall Risk Assessment (Adult) History of falling in the last 3 months, ph including since admission No falls in past 3 months (0 pts) Confusion or Disorientation No (0 pts) Intoxicated or Sedated No (0 pts) Impaired Gait Yes (1 pt) Mobility Assist Device Used Yes (1 pt) Altered Elimination Yes (1 pt) Score/Fall Risk Level 3 or more points = High Risk Oriented to surroundings, Maintained a safe environment, Hourly rounding (assess needs \T\ fall precautionary measures) done, Used ambulatory aids as needed (educated on \T\ assisted with). Abuse screen: Denies threats or abuse. Denies injuries from another. Nutritional screening: No deficits noted. Tuberculosis screening: No symptoms or risk factors identified. Assessment: 07:40 Reassessment: RT at bedside, pt placed on bi-pap, tolerating well. ph 07:46 General: SEE TRIAGE ASSESSMENT. ph 08:33 Reassessment: Difficulty obtaining IV access, ERP aware, charge nurse at bedside. ph 19:37 Reassessment: Report attempted. Per BAND ATTACHER that answered, no nurse is assigned to patient nw1 and will have someone call back to receive report. Made BAND ATTACHER aware that patient has had room for over 1.5 hours and a call back would be appreciated. ASHVIN Burnette RN made aware. 19:58 Reassessment: Report attempted to JORDEN Maher. Per Nika, room is not clean after nw1 assignment was changed. Nika states she will receive report once room is cleaned. Change Nurse JORDEN Burnette made aware. 20:48 Reassessment: CALLED UNIT TO GIVE REPORT, PER FISHERIES OFFICER, ROOM IS STILL DIRTY. PER nw1 FISHERIES OFFICER, EVS IS IN ROOM CLEANING AT THIS TIME. STATES A RETURN CALL SHOULD BE MADE IN 15 MIN. Vital Signs: 07:38 BP 190 / 88; Pulse 145; Resp 32; Temp 97.7; Pulse Ox 90% on Non-rebreather mask; ph 07:56 BP 190 / 88; Pulse 94; rn 08:24 BP 149 / 71; Pulse 87; Resp 18; Pulse Ox 94% on BiPAP; ph 09:11 BP 141 / 64; Pulse 79; Resp 18; Pulse Ox 100% on BiPAP; ph 10:57 Weight 79.83 kg (R); Height 5 ft. 6 in. (R); kc6 11:13 BP 161 / 68; Pulse 90; Resp 20; Pulse Ox 97% on BiPAP; ph 19:39 BP 147 / 86; Pulse 90; Pulse Ox 98% on 2 lpm NC; nw1 10:57 Body Mass Index 28.41 (79.83 kg, 167.64 cm) kc6 Vitals: 08:24 Cardiac Rhythm Assessment Sinus rhythm. ph ED Course: 07:23 Patient arrived in ED. eb 07:25 Heath Mccabe MD is Attending Physician. rn 07:35 Parish cath inserted, using sterile technique, 16 Fr., by id, balloon inflated, to ph gravity drainage, urine specimen collected. returned cloudy urine. 07:38 Caitlin Salmon RN is Primary Nurse. ph 07:42 Triage completed. ph 07:44 Chest Single View XRAY In Process Unspecified. EDMS 07:46 Arm band placed on Patient placed in an exam room, on a stretcher, on oxygen, on ph air sampling and monitoring, on pulse oximetry. 07:47 Patient has correct armband on for positive identification. Placed in gown. Bed in low ph position. Call light in reach. Side rails up X2. Warm blanket given. Pillow given. Cleaned of incontinence. Linen changed. 08:06 Missed attempt(s): 22 gauge in left forearm. Missed attempt(s): 24 gauge in right kc6 forearm. 08:24 Missed attempt(s): 24 gauge in left wrist. Bleeding controlled, band aid applied, ph catheter tip intact. 08:52 Inserted saline lock: 22 gauge in right forearm, using aseptic technique. Blood ph collected. 08:53 Gonzalez Landry MD is Hospitalizing Provider. rn 11:35 Inserted saline lock: 20 gauge in left upper arm, using aseptic technique. ,using nj1 aseptic technique. Ultrasound guided. Catheter tip well visualized within vasculature during placement. Blood collected. 12:24 Chest Angio In Process Unspecified. EDMS 21:19 Report given to Cathy Bill RN. All questions asked, answered. nw1 Administered Medications: 09:05 Drug: Furosemide IVP 40 mg IVP once; give over 2 minutes Route: IVP; Site: right ph forearm; 10:43 Follow up: Response: No adverse reaction kc6 09:11 Drug: levofloxacin IVPB 750 mg 150 ml IVPB once over 90 mins; give after blood cultures ph obtained Volume: 150 ml; Route: IVPB; Infused Over: 90 mins; Site: right forearm; 10:43 Follow up: Response: No adverse reaction; IV Status: Completed infusion; IV Intake: kc6 100ml 10:21 Drug: NS 0.9% IV 500 ml IV at bolus once Route: IV; Rate: bolus; Site: right forearm; ph 10:21 Drug: Levalbuterol Inhalation 1.25 mg Inhalation once Route: Inhalation; ph Medication: 07:48 VIS not applicable for this client. ph Intake: 10:43 IV: 100ml; Total: 100ml. kc6 Outcome: 08:54 Decision to Hospitalize by Provider. rn 22:35 Patient left the ED. nw1 Signatures: Dispatcher [employer] EDMS Heath Mccabe MD MD rn Hall, Patricia, RN RN ph Botello, Elizabeth eb Campbell, Sabina, RN RN kc6 Leslie Combs, JORDEN RN nj1 Lenka Chinchilla RN RN nw1 Corrections: (The following items were deleted from the chart) 20:48 20:00 Reassessment: Report attempted to JORDEN Maher. Per Nika, room is not clean after nw1 assignment was changed. Nika states she will receive report once room is cleaned. Change Nurse JORDEN Burnette made aware. nw1
--- NOTE | 2023-04-12 08:54 | EDPHYS ---
Physician Documentation [facility] Name: Claudia Juarez Age: 77 yrs Sex: Female : 1945 Arrival Date: 04/12/2023 Time: 07:20 Bed 3 Private MD: ED Physician Heath Mccabe HPI: 04/12 07:47 This 77 yrs old Black Female presents to ER via EMS with complaints of Breathing rn Difficulty. 07:47 The patient has shortness of breath at rest, with light activity. Onset: The rn symptoms/episode began/occurred last night. Duration: The symptoms are continuous. The patient's shortness of breath is aggravated by nothing, is alleviated by sitting up, application of supplemental oxygen. Severity of symptoms: At their worst the symptoms were moderate in the emergency department the symptoms have improved. The patient has experienced similar episodes in the past. Patient reports history of congestive heart failure and COPD. Began feeling shortness of breath last night, worse when lying flat, improves with supplemental oxygen. EMS reports oxygen saturation in the 30s, placed on nonrebreather with improvement to the 90s. Patient denies any pain. Denies any fever or recent illness.. Historical: - Allergies: 07:42 PENICILLINS; ph 07:42 Aspirin; ph 07:42 Prednisone; ph 07:42 pentazocine lactate; ph - Home Meds: 08:34 aspirin-dipyridamole 25-200 mg Oral Capsule, ER Multiphase 12 hr [Active]; omeprazole ph 40 mg Oral capsule,delayed release (e.c.) daily [Active]; aripiprazole 5 mg oral tablet every day at bedtime [Active]; furosemide 20 mg oral tablet 1 tablet 2 times per week [Active]; ferrous gluconate 324 mg (37.5 mg iron) Oral tablet daily [Active]; losartan 50 mg oral tablet 1 tab daily [Active]; meloxicam 15 mg oral tablet daily [Active]; hydrocodone-acetaminophen 7.5-325 mg Oral tablet 1 tab 2 to 3 times per day PRN [Active]; metoprolol succinate 50 mg oral Tablet, Extended Release 24 hr 1 tab daily [Active]; alprazolam 0.25 mg Oral tablet 1 tab 3 times per day [Active]; escitalopram oxalate 20 mg oral tablet 1 tab daily [Active]; albuterol sulfate 90 mcg/actuation Inhl HFA Aerosol Inhaler 2 inhalations every 6 hours [Active]; - PMHx: 07:42 Congestive heart failure; Chronic obstructive lung disease; Hypertensive disorder; ph - Immunization history:: Adult Immunizations unknown. - Family history:: not pertinent. - Social history:: Smoking status: unknown. - Hospitalizations: : No recent hospitalization is reported. ROS: 07:47 Constitutional: Negative for fever, chills, and weight loss, ENT: Negative for injury, rn pain, and discharge, Neck: Negative for injury, pain, and swelling, Cardiovascular: Negative for chest pain, palpitations, and edema, Respiratory: Positive for shortness of breath Abdomen/GI: Negative for abdominal pain, nausea, vomiting, diarrhea, and constipation, MS/Extremity: Negative for injury and deformity, Skin: Negative for injury, rash, and discoloration, Neuro: Negative for headache, numbness, tingling, and seizure, Exam: 07:47 Constitutional: Thin female with tachypnea Head/Face: Normocephalic, atraumatic. ENT: rn No stridor. Dry mucous membranes. Cardiovascular: Tachycardic, irregular. No pulse deficits or cyanosis Respiratory: Moderate tachypnea, coarse bilateral breath sounds with crackles bilaterally. Diminished at bases. Mild retractions Abdomen/GI: Soft, non-tender, nondistended Skin: Warm, dry MS/ Extremity: Pulses equal, no cyanosis. Neuro: Awake and alert, GCS 15 09:57 ECG was reviewed by the Attending Physician. rn Vital Signs: 07:38 BP 190 / 88; Pulse 145; Resp 32; Temp 97.7; Pulse Ox 90% on Non-rebreather mask; ph 07:56 BP 190 / 88; Pulse 94; rn 08:24 BP 149 / 71; Pulse 87; Resp 18; Pulse Ox 94% on BiPAP; ph 09:11 BP 141 / 64; Pulse 79; Resp 18; Pulse Ox 100% on BiPAP; ph 10:57 Weight 79.83 kg (R); Height 5 ft. 6 in. (R); kc6 11:13 BP 161 / 68; Pulse 90; Resp 20; Pulse Ox 97% on BiPAP; ph 19:39 BP 147 / 86; Pulse 90; Pulse Ox 98% on 2 lpm NC; nw1 10:57 Body Mass Index 28.41 (79.83 kg, 167.64 cm) kc6 MDM: 07:26 Patient medically screened. rn 07:57 ED course: Patient improved and is comfortable on BiPAP. rn 08:52 Differential diagnosis: CHF exacerbation, Chronic Obstructive Pulmonary Disease rn Myocardial Infarction pneumonia, Pneumothorax pulmonary edema. Data reviewed: vital signs, nurses notes, lab test result(s), EKG, radiologic studies, plain films, and as a result, I will admit patient. Consideration of Admission/Observation Patient was admitted/placed on observation. Escalation of care including admission/observation considered. Independent interpretation of the following test(s) in the Emergency Department EKG: See my EKG interpretation above X-Ray: My interpretation is Chest x-ray images show bilateral pulmonary edema versus infection per my interpretation. Care significantly affected by the following chronic conditions: Hypertension, Congestive Heart Failure, Chronic Obstructive Pulmonary Disease. Counseling: I had a detailed discussion with the patient and/or guardian regarding the historical points, exam findings, and any diagnostic results supporting the discharge/admit diagnosis, lab results, radiology results, the need for further work-up and treatment in the hospital. Response to treatment: the patient's symptoms have markedly improved after treatment, and as a result, I will admit patient. 08:52 ED course: Nursing staff having difficulty obtaining blood at this time.. rn 08:52 ED course: I personally spent 35 minutes engaged in work directly related to the rn individual patient's care. This does not include any time spent performing procedures. The patient has been deemed critically ill because of severe hypoxia requiring BiPAP level of support, combination of viral COVID infection as well as pulmonary edema and UTI.. 09:38 ED course: Patient given Lasix earlier given history of congestive heart failure, rn pulmonary edema on chest x-ray and denied symptoms of infection, also afebrile. Lactic acid has come back above 4, will be very gentle with IV fluids given COVID infection as well as history of congestive heart failure, as well as normotension. I think improving oxygenation and respirations with BiPAP will help lactic acidosis and is primarily a respiratory problem not a volume problem.. 12:12 ED course: Per verbal report, echo performed and shows signs of heart failure and may rn be mitral regurgitation, but no sign of RV strain.. 16:38 ED course: Repeat lactate earlier was normal. Improved perfusion after BiPAP and rn correction of respiratory difficulty. Sepsis reevaluation complete. Patient did not require for 30milliliters per kilogram bolus because of congestive heart failure and pulmonary edema on imaging, responded well to small bolus and BiPAP interventions.. 04/12 07:28 Order name: Blood Culture Adult (2) rn 04/12 07:28 Order name: CBC with Diff; Complete Time: 09:58 rn 04/12 07:28 Order name: CMP; Complete Time: 12:13 rn 04/12 07:28 Order name: Lactate w/ 2H reflex if indic.; Complete Time: 09:39 rn 04/12 07:28 Order name: Protime (+inr); Complete Time: 09:39 rn 04/12 07:28 Order name: Ptt, Activated; Complete Time: 09:39 rn 04/12 07:28 Order name: Urinalysis w/ reflexes; Complete Time: 08:45 rn 04/12 07:28 Order name: Flu; Complete Time: 08:45 rn 04/12 07:28 Order name: SARS RAPID; Complete Time: 08:45 rn 04/12 08:41 Order name: Urine Culture EDUT 04/12 09:21 Order name: Manual Differential; Complete Time: 09:58 EDUT 04/12 10:46 Order name: Procalcitonin; Complete Time: 16:38 EDUT 04/12 11:01 Order name: D-Dimer; Complete Time: 12:13 EDUT 04/12 11:02 Order name: NT PRO-BNP; Complete Time: 12:13 EDUT 04/12 11:02 Order name: Troponin High Sensitivity; Complete Time: 12:13 EDUT 04/12 13:04 Order name: Lactate w/ 2H reflex if indic. EDMS 04/12 13:04 Order name: Basic Metabolic Panel EDUT 04/12 13:04 Order name: Basic Metabolic Panel EDUT 04/12 13:04 Order name: Basic Metabolic Panel EDMS 04/12 13:04 Order name: Basic Metabolic Panel EDUT 04/12 13:04 Order name: Basic Metabolic Panel EDMS 04/12 13:04 Order name: Basic Metabolic Panel EDMS 04/12 13:04 Order name: CBC with Automated Diff EDMS 04/12 13:04 Order name: CBC with Automated Diff EDMS 04/12 13:04 Order name: CBC with Automated Diff EDMS 04/12 13:04 Order name: CBC with Automated Diff EDMS 04/12 13:04 Order name: CBC with Automated Diff EDMS 04/12 13:04 Order name: CBC with Automated Diff EDMS 04/12 13:04 Order name: Magnesium EDMS 04/12 13:04 Order name: Magnesium EDMS 04/12 13:04 Order name: Magnesium EDMS 04/12 13:04 Order name: Magnesium EDMS 04/12 13:04 Order name: Magnesium EDMS 04/12 13:04 Order name: Magnesium EDMS 04/12 13:04 Order name: Phosphorus EDMS 04/12 13:04 Order name: Phosphorus EDMS 04/12 13:04 Order name: Phosphorus EDMS 04/12 13:04 Order name: Phosphorus EDMS 04/12 13:04 Order name: Phosphorus EDMS 04/12 13:04 Order name: Phosphorus EDMS 04/12 13:04 Order name: Troponin High Sensitivity EDMS 04/12 13:04 Order name: Troponin High Sensitivity EDMS 04/12 13:04 Order name: Troponin High Sensitivity EDMS 04/12 13:11 Order name: ABG Arterial Blood Gas EDMS 04/12 13:11 Order name: C-Reactive Protein EDMS 04/12 13:11 Order name: C-Reactive Protein EDMS 04/12 13:11 Order name: Ferritin EDMS 04/12 13:11 Order name: Ferritin EDMS 04/12 13:11 Order name: Ferritin EDMS 04/12 13:11 Order name: Lipid Profile EDMS 04/12 13:11 Order name: Lipid Profile EDMS 04/12 14:25 Order name: Lactate Sepsis 2 HR Follow-up; Complete Time: 16:38 EDMS 04/12 07:28 Order name: Chest Single View XRAY; Complete Time: 08:28 rn 04/12 07:28 Order name: BIPAP rn 04/12 10:44 Order name: Chest Angio; Complete Time: 16:38 EDMS 04/12 10:44 Order name: Echo with Doppler EDMS 04/12 11:29 Order name: BiPap ([employer] Only) EDMS 04/12 07:28 Order name: EKG; Complete Time: 07:28 rn 04/12 13:04 Order name: CONS Physician Consult EDMS 04/12 07:28 Order name: Accucheck; Complete Time: 10:35 rn 04/12 07:28 Order name: Cardiac monitoring; Complete Time: 08:06 rn 04/12 07:28 Order name: EKG - Nurse/Tech; Complete Time: 07:49 rn 04/12 07:28 Order name: IV Saline Lock - Large Bore; Complete Time: 10:35 rn 04/12 07:28 Order name: Labs collected and sent; Complete Time: 10:35 rn 04/12 07:28 Order name: O2 Per Protocol; Complete Time: 07:49 rn 04/12 07:28 Order name: O2 Sat Monitoring; Complete Time: 07:49 rn 04/12 07:28 Order name: Vital Signs; Complete Time: 07:49 rn 04/12 09:29 Order name: Labs - recollect needed: recollect chemistries; Complete Time: 10:43 eb EC:57 Rate is 91 beats/min. Rhythm is regular. QRS [place] is Normal. PA interval is normal. QRS rn interval is normal. QT interval is normal. No Q waves. T waves are Normal. No ST changes noted. Clinical impression: Normal ECG. Interpreted by me. Reviewed by me. Administered Medications: 09:05 Drug: Furosemide IVP 40 mg IVP once; give over 2 minutes Route: IVP; Site: right ph forearm; 10:43 Follow up: Response: No adverse reaction kc6 09:11 Drug: levofloxacin IVPB 750 mg 150 ml IVPB once over 90 mins; give after blood cultures ph obtained Volume: 150 ml; Route: IVPB; Infused Over: 90 mins; Site: right forearm; 10:43 Follow up: Response: No adverse reaction; IV Status: Completed infusion; IV Intake: kc6 100ml 10:21 Drug: NS 0.9% IV 500 ml IV at bolus once Route: IV; Rate: bolus; Site: right forearm; ph 10:21 Drug: Levalbuterol Inhalation 1.25 mg Inhalation once Route: Inhalation; ph Disposition: 08:52 Critical Care:. rn Disposition Summary: 04/12/23 08:54 Hospitalization Ordered Notes: Hospitalization Status: Inpatient Admission rn Provider: Gonzalez Landry rn Condition: Stable rn Problem: new rn Symptoms: have improved rn Bed/Room Type: Standard rn Location: Telemetry/MedSurg (Inpatient)(04/12/23 17:20) eb Room Assignment: 222(04/12/23 19:43) rv1 Diagnosis - Acute pulmonary edema rn - COPD/ Chronic obstructive pulmonary disease, unspecified rn - SARS-associated coronavirus as the cause of diseases classified elsewhere rn - UTI/ Urinary tract infection, site not specified rn Forms: - Medication Reconciliation Form rn - SBAR form rn - Leadership Thank You Letter yarn dyer time excluding procedures: 08:52 Critical care time: Bedside Care: 35 minutes. Total time: 35 minutes rn Signatures: Dispatcher [employer] EDMS Heath Mccabe MD MD rn Hall, Patricia RN RN Xochitl Osborne Kelly, RN RN kb3 Dorys Kelsey rv1 Sabina Byrnes RN kc6 Corrections: (The following items were deleted from the chart) 11:01 10:46 D-Dimer ordered. EDMS EDMS 11:02 10:46 NT PRO-BNP ordered. EDMS EDMS 11:02 10:56 Troponin High Sensitivity ordered. EDMS EDMS 14:27 08:54 Telemetry/MedSurg (Inpatient) rn kb3 14:27 08:54 rn kb3 17:20 14:27 [facility] ER HOLD kb3 eb 17:20 14:27 ERHOLD- kb3 eb 19:43 17:20 203 eb rv1
[2023-04-12] MEDS ORDERED: FUROSEMIDE 40 MG/4 ML VIAL ONE ×2 (09:08→17:17)
[2023-04-12] MEDS ORDERED: Levofloxacin 750mg IV 750 MG/150 ML BAG IV ONE (09:08)
[2023-04-12 09:16] LABS: Absolute Lymphocytes (CBC) 0.8 K/uL (0.7-4.9); Hematocrit 32.5 % (36.0-45.0); Lymphocytes % 5.6 % (15.3-44.8); MCV 71.6 fL (80-100); Platelets 289 thou/uL (152-406); RBC Red Blood Cell Count 4.54 M/uL (3.86-4.86)
[2023-04-12 09:20] LABS: Protime INR 1.07
[2023-04-12 09:49] LABS: Platelet Estimate ADEQ
[2023-04-12 09:50] LABS: Anisocytosis 1+; Blood Morphology Comment NOTED (NOT SEEN)
[2023-04-12] MEDS ORDERED: LEVALBUTEROL 1.25 MG/3 ML NEB ONE (10:26)
[2023-04-12] MEDS ORDERED: NA CHLORIDE 0.9% 500 ML ONE (10:26)
[2023-04-12 11:36] LABS: Albumin 3.1 g/dL (3.4-5.0); Bilirubin Total 0.3 mg/dL (0.2-1.0); Potassium 5.5 mEq/L (3.5-5.1); Protein, Total 8.1 g/dL (6.4-8.2)
[2023-04-12 12:12] LABS: Troponin High Sensitivity 171.4 pg/mL (<58.9)
--- NOTE | 2023-04-12 12:38 | RAD REPORT ---
EXAM DESCRIPTION: CT - Chest Angio - 04/12/2023 12:22 pm CLINICAL HISTORY: Chest pain. respiratory distress COMPARISON: Lung Cancer Screening CT W/O dated 06/16/2020 TECHNIQUE: CT angiogram of the pulmonary arteries was performed with MIP. All CT scans are performed using dose optimization technique as appropriate and may include automated exposure control or mA/KV adjustment according to patient size. FINDINGS: No evidence of pulmonary thromboembolism. No acute aortic finding demonstrated. Moderately severe bilateral interstitial and alveolar lung opacities are present, slightly greater on the right. Small right pleural effusion. Trace left pleural effusion. The heart is moderately enlarged. No concerning bony finding. IMPRESSION: No evidence of pulmonary thromboembolism. Moderate interstitial bed alveolar lung opacities are present, greater on the right. Findings could r epresent asymmetric pulmonary edema versus pneumonia. Moderate cardiomegaly. Small right pleural.
[2023-04-12] MEDS ORDERED: IPRATROPIUM BROM 0.5MG/2.5ML NEB SCH (14:00)
--- NOTE | 2023-04-12 14:47 | ECHO ---
HEIGHT: ft in WEIGHT: lb oz DATE OF STUDY: 04/12/[address]: Gonzalez Landry MD 2-DIMENSIONAL: YES M.MODE: YES DOPPLER: YES COLOR FLOW: YES TDS: NO PORTABLE: YES DEFINITY: NO BUBBLE STUDY: NO DIAGNOSIS: ACUTE RESPIRATORY FAILURE CARDIAC HISTORY: CATHERIZATION: NO SURGERY: NO PROSTHETIC VALVE: NO PACEMAKER: NO MEASUREMENTS (cm) DIASTOLIC (NORMALS) SYSTOLIC (NORMALS) IVSd 1.0 (0.6-1.2) LA Diam 3.1 (1.9-4.0) LVEF 32% LVIDd 4.8 (3.5-5.7) LVIDs 4.1 (2.0-3.5) %FS 15% LVPWd 1.1 (0.6-1.2) Ao Diam 2.9 (2.0-3.7) 2 DIMENSIONAL ASSESSMENT: RIGHT ATRIUM: NORMAL LEFT ATRIUM: NORMAL RIGHT VENTRICLE: NORMAL LEFT VENTRICLE: DEPRESSED EJECTION FRACTION TRICUSPID VALVE: MILD TRICUSPID REGURGITATION MITRAL VALVE: MILD MITRAL REGURGITATION PULMONIC VALVE: NORMAL AORTIC VALVE: NORMAL PERICARDIAL EFFUSION: NONE AORTIC ROOT: NORMAL LEFT VENTRICULAR WALL MOTION: APICAL/ANTERIOR HYPOKINESIS. DOPPLER/COLOR FLOW: SEE BELOW. COMMENTS: 1. MODERATLEY DEPRESSED LEFT VENTRICULAR EJECTION FRACTION 30-35%. 2. ANTERIOR/APICAL HYPOKINESIS. 3. MILD MITRAL REGURGITATION 4. MILD TRICUSPID REGURGITATION. 5. GRADE I DIASTOLIC DYSFUNCTION. 6. MODERATE PULMONARY HYPERTENSION WITH RIGHT VENTRICULAR SYSTOLIC PRESSURE OF 55mmHg. TECHNOLOGIST: CHARLES SHAH
[2023-04-12] MEDS: HYDROCODONE/APAP 7.5/325 MG TAB PO PRN ×2 (15:13→20:41)
[2023-04-12] MEDS ORDERED: HYDROCODONE/APAP 7.5/325 MG TAB ONE ×2 (15:13→20:45)
[2023-04-12] MEDS ORDERED: IPRATROPIUM BROM 0.5MG/2.5ML NEB PRN (16:35)
[2023-04-12] MEDS: HEPARIN 5000 UNIT/ML 1 ML VIAL SQ SCH (17:00)
[2023-04-12] MEDS: FUROSEMIDE 40 MG/4 ML VIAL IV SCH (17:00)
[2023-04-12] MEDS ORDERED: HEPARIN 5000 UNIT/ML 1 ML VIAL ONE (17:17)
[2023-04-12] MEDS ORDERED: ALBUMIN HUMAN 25% 50 ML IV SCH (18:00)
[2023-04-12] MEDS ORDERED: FUROSEMIDE 40 MG/4 ML VIAL IV ONE ×2 (18:00→20:00)
--- NOTE | 2023-04-12 18:07 | P.HP ---
Patient History Date of Service: 04/12/23 Reason for admission: COVID, COPD exacerbation History of Present Illness: Claudia Juarez is a 77-year-old female with past medical history of congestive heart failure, chronic obstructive lung disease, and hypertensive disorder who presented to the ED with shortness of breath at rest and with light activity. Symptoms began last night and are continuous, symptoms are alleviated by sitting up and application of oxygen. Claudia reports experiencing these symptoms before in the past. EMS reports oxygen saturation in the 30s when they applied nonrebreather and improved saturation to 90s. Initial vitals BP 190 / 88; Pulse 145; Resp 32; Temp 97.7; Pulse Ox 90% on Non- rebreather mask. Significant labs WBC 13.8, lactic 4.3, BNP 41093, elevated troponin 171.4, and H&H 10/32.5. EKG reports normal sinus rhythm, heart rate 91, QT/QTc 388/477. Chest x-ray reports "bilateral pulmonary opacity right greater than the left" Echocardiogram reports "EF 32%, mild mitral regurgitation, mild tricuspid regurgitation, grade [address] chest PE protocol reports "Moderate interstitial bed alveolar lung opacities are present, greater on the right. Findings could represent asymmetric pulmonary edema versus pneumonia. Moderate cardiomegaly" Claudia will be admitted to hospitalist service for further evaluation and treatment of COPD exacerbation, CHF, COVID, and UTI. Allergies aspirin Allergy (Verified 09/15/18 08:21) Nausea/Vomiting Penicillins Allergy (Verified 09/15/18 08:21) Anaphylaxis pentazocine lactate [From Talwin] Allergy (Verified 09/15/18 08:21) Nausea/Vomiting prednisone Adverse Reaction (Verified 09/15/18 08:21) Messes with Diabetes Dulcolax Stool Softener Allergy (Uncoded 09/15/18 08:21) Unknown steroids Adverse Reaction (Uncoded 09/15/18 08:21) unknown Home Medications: Dipyridamole/Aspirin [Aggrenox Extend Release] 1 cap PO BID 05/30/15 Escitalopram [Lexapro] 20 mg PO DAILY 05/30/15 Losartan Potassium [Cozaar] 50 mg PO DAILY 05/30/15 Metoprolol Succinate [Toprol Xl] 50 mg PO DAILY 05/30/15 Omeprazole 20 mg PO DAILY 05/30/15 ALPRAZolam [Alprazolam] 0.25 mg PO TID 04/12/23 ARIPiprazole [Abilify] 5 mg PO BEDTIME 04/12/23 Albuterol Sulfate [Proair Digihaler] 2 puff IH Q6HR 04/12/23 Ferrous Gluconate 324 mg PO DAILY 04/12/23 Furosemide 20 mg PO DIRECTED 04/12/23 Hydrocodone Bit/Acetaminophen [Hydrocodon-Acetaminoph 7.5-325] 1 each PO DIRECTED PRN 04/12/23 Meloxicam 15 mg PO DAILY 04/12/23 - Past Medical/Surgical History Diabetic: Yes -: DM -: HTN -: Anxiety -: COPD -: Back pain, prolapsed Disc. Seeing a pain Doc -: Hysterectomy -: Tonsilectomy -: Appy -: Tubal Ligation - Family History Father -: Cancer Notes: Prostate Mother -: GI disease - Social History Alcohol use: No CD- Drugs: No Caffeine use: Yes Review of Systems General: Malaise Eyes: Unremarkable ENT: Unremarkable Respiratory: Shortness of Breath, SOB with Excertion Cardiovascular: Unremarkable Gastrointestinal: Unremarkable Genitourinary: Unremarkable Integumentary: Unremarkable Neurological: Unremarkable Physical Examination - Vital Signs Temperature: 98.1 F Blood Pressure: 143/82 Pulse: 90 Respirations: 16 Pulse Ox (%): 99 - Physical Exam General: Alert, Oriented x3, Severe distress HEENT: Atraumatic, Normocephalic, PERRLA Neck: Supple, 2+ carotid pulse no bruit Respiratory: Clear to auscultation bilaterally, Diminished Cardiovascular: No edema, Normal pulses, Regular rate/rhythm Capillary refill: <2 Seconds Gastrointestinal: Normal bowel sounds, Soft and benign Musculoskeletal: No clubbing, No swelling, No contractures Integumentary: No rashes, No breakdown, No significant lesion Neurological: Normal speech, Normal strength at 5/5 x4 extr, Normal tone Urinary: Parish catheter - Studies Laboratory Data (last 24 hrs) 04/12/23 04/12/23 04/12/23 10:42 09:00 09:00 WBC 13.80 H Hgb 10.0 L Hct 32.5 L Plt Count 289 PT 11.8 INR 1.07 APTT 32.8 Sodium 136 Potassium 5.5 H BUN 21 H Creatinine 1.06 H Glucose 114 H Total Bilirubin 0.3 AST 17 ALT 18 Alkaline Phosphatase 146 H Microbiology Data (last 24 hrs): 04/12/23 07:55 Nasopharnyx Influenza Type A Antigen Screen - Final 04/12/23 07:55 Nasopharnyx Influenza Type B Antigen Screen - Final Assessment and Plan - Plan Assessment and Plan Acute hypoxic respiratory failure 2/2 COVID in patient with history of COPD Acute COPD exacerbation Acute pulmonary edema Leukocytosis lactic acidosis WBC 13.8, Lactic 4.3/1.[address] Acevedo on bipap in ED and weaned to NC Neb treatments ECHO stat Levaquin steroids lasix HFrEF GRADE I DIASTOLIC DYSFUNCTION MODERATE PULMONARY HYPERTENSION ECHO reports EF 32% Mild Mitral regurgitation Mild tricuspid regurgitation Dr García consulted for medical management BNP 06346 lasix Elevated troponin 171.[address], [address] García consulted UTI Leukocyte esterase 500 Bacteria >50 Rocephin Anemia of Chronic illness H/H 10/32.5 MCV 71.6, MCH 21.9, MCHC 30.6, RDW 17.1 Monitor in AM labs Transfuse when hgb < 7 Hx HTN restart home medications DVT ppx: heparin Full code LOS 2-3 days Discharge Plan: Home Plan to discharge in: 72 Hours - Advance Directives Does patient have a Living Will: No Does patient have a Durable POA for Healthcare: No Time Spent Managing Pts Care (In Minutes): 55
[2023-04-12] MEDS: METHYLPREDNISOLONE 125 MG INJ IV SCH (21:00)
[2023-04-12] MEDS: CEFTRIAXONE 1,000 MG in NA CHLORIDE 0.9% 50 ML IVPB SCH (23:39)
[2023-04-12] MEDS: METOPROLOL TAR 25 MG TAB PO SCH (23:39)
[2023-04-12 23:49] LABS: C-Reactive Protein 41.3 mg/L (<3.00); Ferritin 29.4 ng/mL (8-388)
[2023-04-13] MEDS: HEPARIN 5000 UNIT/ML 1 ML VIAL SQ SCH ×3 (00:18→17:29)
[2023-04-13] MEDS: METOPROLOL TAR 25 MG TAB PO SCH ×2 (05:59→17:29)
[2023-04-13 07:59] LABS: Absolute Lymphocytes (CBC) 1.1 K/uL (0.7-4.9); Hematocrit 26.3 % (36.0-45.0); Lymphocytes % 14.4 % (15.3-44.8); MCV 70.4 fL (80-100); MPV 8.6 fL (7.6-11.3); Platelets 212 thou/uL (152-406); RBC Red Blood Cell Count 3.73 M/uL (3.86-4.86)
[2023-04-13 08:23] LABS: Magnesium 1.8 mg/dL (1.6-2.4); Phosphorus 3.4 mg/dL (2.5-4.9); Potassium 4.1 mEq/L (3.5-5.1)
[2023-04-13] MEDS: METHYLPREDNISOLONE 125 MG INJ IV SCH ×3 (09:00→20:24)
[2023-04-13] MEDS: FUROSEMIDE 40 MG/4 ML VIAL IV SCH ×2 (09:16→17:28)
[2023-04-13] MEDS: CEFTRIAXONE 1,000 MG in NA CHLORIDE 0.9% 50 ML IVPB SCH (09:17)
[2023-04-13] MEDS ORDERED: NA CHLORIDE 0.9% 250 ML ONE (09:45)
[2023-04-13] MEDS ORDERED: LACTULOSE 20 GM/30 ML UCUP PO ONE ×2 (11:22→11:59)
[2023-04-13] MEDS: ALBUMIN HUMAN 25% 50 ML IV SCH (12:09)
[2023-04-13] MEDS: HYDROCODONE/APAP 7.5/325 MG TAB PO PRN ×2 (13:16→20:16)
[2023-04-14] MEDS: HYDRALAZINE HCL 20 MG/ML VIAL IV PRN ×2 (00:38→21:00)
[2023-04-14] MEDS: ALBUMIN HUMAN 25% 50 ML IV SCH ×2 (00:38→12:00)
[2023-04-14] MEDS: HEPARIN 5000 UNIT/ML 1 ML VIAL SQ SCH ×3 (00:38→17:17)
[2023-04-14] MEDS: HYDROCODONE/APAP 7.5/325 MG TAB PO PRN ×2 (01:55→21:01)
[2023-04-14 03:37] LABS: Absolute Lymphocytes (CBC) 0.3 K/uL (0.7-4.9); Hematocrit 27.6 % (36.0-45.0); Lymphocytes % 4.4 % (15.3-44.8); MCV 70.2 fL (80-100); Platelets 231 thou/uL (152-406); RBC Red Blood Cell Count 3.93 M/uL (3.86-4.86)
[2023-04-14 03:51] LABS: Magnesium 1.8 mg/dL (1.6-2.4)
[2023-04-14 04:21] LABS: Anisocytosis 1+; Blood Morphology Comment NOTED (NOT SEEN); Ovalocytes 1+; Platelet Estimate ADEQ; Poikilocytosis 1+; Teardrop Cell 1+; White Blood Cell Scan OK (OK)
[2023-04-14] MEDS: METOPROLOL TAR 25 MG TAB PO SCH ×2 (05:22→17:17)
[2023-04-14 06:04] VITALS: BMI 27.2
[2023-04-14] MEDS: METHYLPREDNISOLONE 125 MG INJ IV SCH ×2 (08:50→21:02)
[2023-04-14] MEDS: CEFTRIAXONE 1,000 MG in NA CHLORIDE 0.9% 50 ML IVPB SCH (08:50)
[2023-04-14] MEDS: FUROSEMIDE 40 MG/4 ML VIAL IV SCH ×2 (08:51→17:17)
[2023-04-14] MEDS: Levofloxacin 750mg IV 750 MG/150 ML BAG IV SCH (08:51)
[2023-04-14] MEDS ORDERED: ACETAMIN/CAFFEINE/BUTALB TAB PO ONE (11:00)
[2023-04-14] MEDS ORDERED: ACETAMINOPHEN 325 MG TABLET PO ONE (11:00)
[2023-04-14] MEDS: DIPYRIDAMOLE/ASPIRIN CAP ER PO SCH ×2 (21:00→22:16)
[2023-04-14] MEDS: ARIPiprazole 5 MG TAB PO SCH (21:01)
[2023-04-14] MEDS: ALPRAZOLAM 0.25 MG TABLET PO SCH (21:01)
[2023-04-14] MEDS ORDERED: SODIUM CHLORIDE 0.9% 10ML INJ IV PRN (21:48)
[2023-04-14] MEDS: PANTOPRAZOLE 40MG TABLET PO SCH (22:16)
[2023-04-15] MEDS: HEPARIN 5000 UNIT/ML 1 ML VIAL SQ SCH ×3 (01:00→17:22)
[2023-04-15] MEDS ORDERED: ACETAMINOPHEN 500 MG TAB PO PRN (02:58)
[2023-04-15 03:37] LABS: Absolute Lymphocytes (CBC) 0.5 K/uL (0.7-4.9); Hematocrit 27.3 % (36.0-45.0); MCV 70.3 fL (80-100); Platelets 234 thou/uL (152-406); RBC Red Blood Cell Count 3.88 M/uL (3.86-4.86)
[2023-04-15 04:33] LABS: Magnesium 2.1 mg/dL (1.6-2.4); Phosphorus 2.9 mg/dL (2.5-4.9); Potassium 3.9 mEq/L (3.5-5.1)
--- NOTE | 2023-04-15 05:02 | P.PN ---
Date of Service: 04/13/23 Subjective Patient continues to improve. Patient is feeling better after being diuresed aggressively. Patient's echocardiogram revealed an ejection fraction of 25 to 30%. Patient will be diuresed and will continue with treatment for COPD. Physical Examination - Vital Signs reviewed - Physical Exam General: Alert, Oriented x3, Severe distress Respiratory: Basilar crackles with diminished breath sounds at the bases Cardiovascular: Regular rate and rhythm with systolic ejection murmur II/ Gastrointestinal: Normal bowel sounds, Soft and benign Musculoskeletal: No clubbing, No swelling, No contractures Integumentary: No rashes, No breakdown, No significant lesion Neurological: No focal deficits Assessment and Plan -Assessment and Plan Assessment and Plan -Acute hypoxic respiratory failure 2/2 COVID in patient with history of COPD Acute COPD exacerbation Acute pulmonary edema Leukocytosis lactic acidosis Continue with nebs, steroids, and antibiotics. CT scan with no pulmonary embolism. We will continue with treatment for COPD. Procalcitonin level was slightly elevated. Continue with antibiotic regimen HFrEF GRADE I DIASTOLIC DYSFUNCTION/non-STEMI MODERATE PULMONARY HYPERTENSION Plan is to continue to diurese. Cardiology has been consulted. We will continue with cardiac medications and will probably need to add Entresto and additional cardiac intervention per cardiology recommendation. UTI Continue with antibiotic regimen Anemia of Chronic illness Monitor H&H; iron studies and B12 studies Hx HTN restart home medications DVT ppx: heparin Full code LOS 2-3 days Discharge Plan: Home Plan to discharge in: 72 Hours - Advance Directives Does patient have a Living Will: No Does patient have a Durable POA for Healthcare: No Time Spent Managing Pts Care (In Minutes): 35
--- NOTE | 2023-04-15 05:04 | P.PN ---
Date of Service: 04/14/23 Subjective Patient is doing well with no new complaints. Clinical symptoms are stable. Physical Examination - Vital Signs reviewed - Physical Exam General: Alert, Oriented x3, Severe distress Respiratory: Basilar crackles with diminished breath sounds at the bases Cardiovascular: Regular rate and rhythm with systolic ejection murmur II/ Gastrointestinal: Normal bowel sounds, Soft and benign Musculoskeletal: No clubbing, No swelling, No contractures Integumentary: No rashes, No breakdown, No significant lesion Neurological: No focal deficits Assessment and Plan -Assessment and Plan Assessment and Plan -Acute hypoxic respiratory failure 2/2 COVID in patient with history of COPD Acute COPD exacerbation Acute pulmonary edema Leukocytosis lactic acidosis Continue with plan of care as mentioned below: Continue with nebs, steroids, and antibiotics. CT scan with no pulmonary embolism. We will continue with treatment for COPD. Procalcitonin level was slightly elevated. Continue with antibiotic regimen HFrEF GRADE I DIASTOLIC DYSFUNCTION/non-STEMI MODERATE PULMONARY HYPERTENSION Plan is to continue to diurese. Cardiology has been consulted. We will continue with cardiac medications and will probably need to add Entresto and additional cardiac intervention per cardiology recommendation. UTI Continue with antibiotic regimen Anemia of Chronic illness Monitor H&H; iron studies and B12 studies Hx HTN restart home medications DVT ppx: heparin Full code LOS 2-3 days Discharge Plan: Home Plan to discharge in: 72 Hours - Advance Directives Does patient have a Living Will: No Does patient have a Durable POA for Healthcare: No Time Spent Managing Pts Care (In Minutes): 35
[2023-04-15 06:28] LABS: Magnesium 2.1 mg/dL (1.6-2.4)
[2023-04-15] MEDS: PANTOPRAZOLE 40MG TABLET PO SCH ×4 (06:52→16:30)
[2023-04-15] MEDS: METHYLPREDNISOLONE 125 MG INJ IV SCH ×2 (06:52→13:11)
[2023-04-15] MEDS: METOPROLOL TAR 25 MG TAB PO SCH ×2 (06:52→17:23)
--- NOTE | 2023-04-15 07:43 | RAD REPORT ---
EXAM DESCRIPTION: Gene Single View04/15/2023 5:18 am CLINICAL HISTORY: Shortness of breath COMPARISON: April 12, 2023 FINDINGS: Bilateral pulmonary opacities have resolved. Heart remains enlarged IMPRESSION: Resolution in the bilateral pulmonary opacities which likely represented pulmonary edema
[2023-04-15] MEDS: DIPYRIDAMOLE/ASPIRIN CAP ER PO SCH ×2 (09:00→21:19)
[2023-04-15] MEDS ORDERED: PANTOPRAZOLE 40 MG INJ IVP SCH (09:00)
[2023-04-15] MEDS ORDERED: POTASSIUM CL SA 10 MEQ TAB PO ONE (09:00)
[2023-04-15] MEDS: ALPRAZOLAM 0.25 MG TABLET PO SCH ×3 (10:17→21:00)
[2023-04-15] MEDS: FUROSEMIDE 40 MG TABLET PO SCH ×2 (10:17→17:22)
[2023-04-15] MEDS: METOPROLOL XL 50 MG TAB PO SCH (10:17)
[2023-04-15] MEDS: HYDROCODONE/APAP 7.5/325 MG TAB PO PRN (10:18)
[2023-04-15] MEDS: LOSARTAN POTASSIUM 50 MG TABLET PO SCH (10:18)
[2023-04-15] MEDS: ESCITALOPRAM 20 MG TAB PO SCH (10:20)
[2023-04-15] MEDS: HYDRALAZINE HCL 20 MG/ML VIAL IV PRN (13:12)
[2023-04-15] MEDS ORDERED: TEMAZEPAM 15 MG CAP PO PRN (18:17)
[2023-04-15 20:26] VITALS: O2SAT 98
[2023-04-15] MEDS: ARIPiprazole 5 MG TAB PO SCH (21:19)
[2023-04-16] MEDS: HEPARIN 5000 UNIT/ML 1 ML VIAL SQ SCH ×2 (01:11→09:51)
[2023-04-16 03:25] LABS: Absolute Lymphocytes (CBC) 1.3 K/uL (0.7-4.9); Hematocrit 28.8 % (36.0-45.0); Lymphocytes % 11.9 % (15.3-44.8); Platelets 245 thou/uL (152-406); RBC Red Blood Cell Count 4.11 M/uL (3.86-4.86)
[2023-04-16 03:36] LABS: Magnesium 2.2 mg/dL (1.6-2.4); Phosphorus 3.2 mg/dL (2.5-4.9); Potassium 3.9 mEq/L (3.5-5.1)
[2023-04-16] MEDS: METOPROLOL TAR 25 MG TAB PO SCH (06:39)
[2023-04-16 08:32] VITALS: BP 179/62; TEMP 97.3
[2023-04-16] MEDS ORDERED: POTASSIUM 25 MEQ EFFERV TAB PO SCH (09:00)
[2023-04-16] MEDS: ALPRAZOLAM 0.25 MG TABLET PO SCH ×2 (09:52→13:56)
[2023-04-16] MEDS: FUROSEMIDE 40 MG TABLET PO SCH (09:53)
[2023-04-16] MEDS: ESCITALOPRAM 20 MG TAB PO SCH (09:53)
[2023-04-16] MEDS: LOSARTAN POTASSIUM 50 MG TABLET PO SCH (09:53)
[2023-04-16] MEDS: Levofloxacin 750mg IV 750 MG/150 ML BAG IV SCH (09:54)
[2023-04-16] MEDS: DIPYRIDAMOLE/ASPIRIN CAP ER PO SCH (09:54)
[2023-04-16] MEDS: METOPROLOL XL 50 MG TAB PO SCH (09:58)
[2023-04-16] MEDS: PANTOPRAZOLE 40MG TABLET PO SCH (09:59)
--- NOTE | 2023-04-16 13:28 | P.PN ---
Subjective Date of Service: 04/16/23 Chief Complaint: COVID, COPD exacerbation Subjective: No new changes, Improving Physical Examination - Vital Signs Temperature: 97.3 F Blood Pressure: 179/62 Pulse: 68 Respirations: 16 Pulse Ox (%): 98 - Physical Exam General: Alert, Oriented x3 HEENT: Atraumatic, Normocephalic Neck: Supple Respiratory: Normal air movement Cardiovascular: Regular rate/rhythm, Normal S1 S2 Gastrointestinal: Soft and benign Musculoskeletal: No swelling Neurological: Normal speech, Normal strength at 5/5 x4 extr Assessment And Plan - Plan Assessment and Plan -Assessment and Plan Assessment and Plan -Acute hypoxic respiratory failure 2/2 COVID in patient with history of COPD Acute COPD exacerbation Acute pulmonary edema Leukocytosis lactic acidosis Patient has significant improvement in respiratory symptoms. She is presently weaned off oxygen and saturating well on room air. Continue antibiotic therapy and bronchodilators. HFrEF GRADE I DIASTOLIC DYSFUNCTION/non-STEMI MODERATE PULMONARY HYPERTENSION Has a significant improvement in symptoms. Pulmonary physician and pathology technician on board. Diuretic therapy to be continued. Other management recommendation as per cardiology service. UTI Continue with antibiotic regimen Anemia of Chronic illness Monitor H&H; iron studies and B12 studies Hx HTN restart home medications DVT ppx: heparin Full code LOS 2-3 days Discharge Plan: Home Plan to discharge in: 24 Hours
--- NOTE | 2023-04-16 13:29 | P.DS ---
Admission Date: 04/12/23 Discharge Date: 04/16/23 Reason for Admission: COVID, COPD exacerbation Brief History of Present Illness: Claudia Juarez is a 77-year-old female with past medical history of congestive heart failure, chronic obstructive lung disease, and hypertensive disorder who presented to the ED with shortness of breath at rest and with light activity. Symptoms began last night and are continuous, symptoms are alleviated by sitting up and application of oxygen. Claudia reports experiencing these symptoms before in the past. EMS reports oxygen saturation in the 30s when they applied nonrebreather and improved saturation to 90s. Hospital Course: Since admission, she responded well to therapy and initial elevated lactic acid was improved to less than 2. A blood culture grew no bug but urine culture grew Klebsiella oxytoca which is pansensitive to multiple drugs including fluoroquinolones. She was started on fluoroquinolone therapy for management of suspected pneumonia. She was weaned off oxygen and on the day of discharge she was stable with no significant respiratory issues. She will complete oral dose of Levaquin 750 mg q. 48 hours x 3 doses. She will follow-up with pulmonary physician and her primary care doctor as scheduled. She did have significant cardiac abnormality that warrants follow-up with Dr. Luciano on outpatient. Vital Signs/Physical Exam: Temp Pulse Resp BP Pulse Ox 97.3 F 68 16 179/62 H 98 04/16/23 13:27 04/16/23 13:27 04/16/23 13:27 04/16/23 13:27 04/16/23 13:27 General: Alert, Oriented x3 HEENT: Atraumatic, Normocephalic Neck: Supple Respiratory: Normal air movement Cardiovascular: Regular rate/rhythm, Normal S1 S2 Gastrointestinal: Soft and benign Musculoskeletal: No swelling Neurological: Normal speech, Normal strength at 5/5 x4 extr Laboratory Data at Discharge: WBC 10.90 thou/uL (4.3-10.9) 04/16/23 02:17 Hgb 9.2 g/dL (12.0-15.0) L 04/16/23 02:17 Hct 28.8 % (36.0-45.0) L 04/16/23 02:17 Plt Count 245 thou/uL (152-406) 04/16/23 02:17 PT 11.8 SECONDS (9.5-12.5) 04/12/23 09:00 INR 1.07 04/12/23 09:00 APTT 32.8 SECONDS (24.3-36.9) 04/12/23 09:00 Sodium 136 mEq/L (136-145) 04/16/23 02:17 Potassium 3.9 mEq/L (3.5-5.1) 04/16/23 02:17 BUN 37 mg/dL (7-18) H 04/16/23 02:17 Creatinine 1.01 mg/dL (0.55-1.02) 04/16/23 02:17 Glucose 179 mg/dL (74-106) H 04/16/23 02:17 Phosphorus 3.2 mg/dL (2.5-4.9) 04/16/23 02:17 Magnesium 2.2 mg/dL (1.6-2.4) 04/16/23 02:17 Total Bilirubin 0.3 mg/dL (0.2-1.0) 04/12/23 10:42 AST 17 U/L (15-37) 04/12/23 10:42 ALT 18 U/L (13-56) 04/12/23 10:42 Alkaline Phosphatase 146 U/L (45-117) H 04/12/23 10:42 Triglycerides 57 mg/dL (<150) 04/13/23 07:25 Cholesterol 115 mg/dL (<200) 04/13/23 07:25 HDL Cholesterol 49 mg/dL (40-60) 04/13/23 07:25 Cholesterol/HDL Ratio 2.35 04/13/23 07:25 Home Medications: Dipyridamole/Aspirin [Aggrenox Extend Release] 1 cap PO BID 05/30/15 Escitalopram [Lexapro] 20 mg PO DAILY 05/30/15 Losartan Potassium [Cozaar] 50 mg PO DAILY 05/30/15 Metoprolol Succinate [Toprol Xl] 50 mg PO DAILY 05/30/15 Omeprazole 20 mg PO DAILY 05/30/15 ALPRAZolam [Alprazolam] 0.25 mg PO TID 04/12/23 ARIPiprazole [Abilify] 5 mg PO BEDTIME 04/12/23 Albuterol Sulfate [Proair Digihaler] 2 puff IH Q6HR 04/12/23 Ferrous Gluconate 324 mg PO DAILY 04/12/23 Furosemide 20 mg PO SEECOM 04/12/23 Hydrocodone Bit/Acetaminophen [Hydrocodon-Acetaminoph 7.5-325] 1 each PO DIRECTED PRN 04/12/23 Meloxicam 15 mg PO DAILY 04/12/23 Diet: AHA Followup: Rosas Briceño MD [Primary Care Provider] -
--- NOTE | 2023-04-17 17:10 | EKG ---
Test Date: 2023-04-12 Test Time: 07:52:19 Mold Tooling Technician: JOY MEASUREMENT RESULTS: Intervals: Rate: 91 VT: 168 QRSD: 80 QT: 388 QTc: 477 Baggs: P: 69 VT: 168 QRS: 26 T: 81 INTERPRETIVE STATEMENTS: Normal sinus rhythm Normal ECG Compared to ECG 02/10/2015 02:02:50 Sinus arrhythmia no longer present Electronically Signed On 04-17-23 16:56:18 CHIEF MEDICAL OFFICER by Jesus Luciano
== END 2023-04-16 16:00 | disposition home health service (06) | DRG 177 ==
LOC: ER 07:20 → ERHOLD 13:28 → 2ND 18:39
PROVIDERS: ADMIT Hospitalist; ATTEND Internal Medicine Nephrology
PROC: 5A09557 Assistance with Respiratory Ventilation, Greater than 96 Consecutive Hours, Continuous Positive Airway Pressure (ICD-10-PCS; principal; 2023-04-12)
DX: U07.1 COVID-19 (principal); J12.82 Pneumonia due to coronavirus disease 2019; J96.01 Acute respiratory failure with hypoxia; N39.0 Urinary tract infection, site not specified; J44.1 Chronic obstructive pulmonary disease with (acute) exacerbation; E87.20 Acidosis, unspecified; J44.0 Chronic obstructive pulmonary disease with (acute) lower respiratory infection; I50.20 Unspecified systolic (congestive) heart failure; I11.0 Hypertensive heart disease with heart failure; I08.1 Rheumatic disorders of both mitral and tricuspid valves; I27.20 Pulmonary hypertension, unspecified; D63.8 Anemia in other chronic diseases classified elsewhere; B96.1 Klebsiella pneumoniae [K. pneumoniae] as the cause of diseases classified elsewhere; R77.8 Other specified abnormalities of plasma proteins; Z88.0 Allergy status to penicillin; Z88.6 Allergy status to analgesic agent; Z88.8 Allergy status to other drugs, medicaments and biological substances; Z79.82 Long term (current) use of aspirin; Z98.51 Tubal ligation status; Z90.49 Acquired absence of other specified parts of digestive tract; Z79.899 Other long term (current) drug therapy; Z90.710 Acquired absence of both cervix and uterus
CPT/HCPCS: 36415; 51702; 71045; 71275; 80048; 80053; 80061; 81001; 82728; 83605; 83735; 83880; 84100; 84145; 84484; 85025; 85379; 85610; 85730; 86140; 87040; 87077; 87086; 87088; 87186; 87804; 87811; 93005; 93306; 94660; 94760; 96365; 96366; 96375; 97161; 97530; 99285; J0360; J0696; J1644; J1940; J2930; J7040; J7050; J7614; P9047; Q9967